=== PATIENT | female | born 1965 | race Caucasian/White ===

== ENCOUNTER 2017-09-04 21:15 | Emergency (ER) | payer MEDICAID ==
[2011-04-14 01:15] VITALS: BMI 25.9
[2017-09-04 22:03] LABS: APPEARANCE CLEAR (CLEAR); BILIRUBIN NEGATIVE (NEGATIVE); COLOR YELLOW (YELLOW); GLUCOSE NEGATIVE (NEGATIVE); KETONE NEGATIVE (NEGATIVE); NITRITE NEGATIVE (NEGATIVE); PROTEIN NEGATIVE (NEGATIVE); SPECIFIC GRAVITY 1.015 (1.005-1.020); UROBILINOGEN NORMAL (NORMAL)
== END 2017-09-04 22:49 | disposition home or self-care (01) ==
LOC: D.ER 21:15
PROVIDERS: Family Medicine
DX: R45.851 Suicidal ideations (principal); I10 Essential (primary) hypertension

== ENCOUNTER 2017-09-05 00:04 | Emergency (ER) | payer MEDICAID ==
[2011-04-14 01:15] VITALS: BMI 25.9
[2017-09-05 01:06] LABS: UDS - AMPHET NEGATIVE QUAL (NEGATIVE); UDS - BARB NEGATIVE QUAL (NEGATIVE); UDS - BENZO POSITIVE QUAL (NEGATIVE); UDS - COCAINE NEGATIVE QUAL (NEGATIVE); UDS - OPIATE POSITIVE QUAL (NEGATIVE); UDS - PCP NEGATIVE QUAL (NEGATIVE); UDS - THC NEGATIVE QUAL (NEGATIVE)
[2017-09-05 01:47] LABS: ALKALINE PHOSPHATASE 155 U/L (46-116); ALT (SGPT) 108 U/L (10-68); CALC OSMOLALITY 277 mosm/kg (275-300); CALCIUM 8.6 mg/dL (8.5-10.1); CARBON DIOXIDE 29.7 mmol/L (21.0-32.0); CHLORIDE - SERUM 102 mmol/L (98-107); CREATININE - SERUM 0.5 mg/dL (0.6-1.3); GLUCOSE 105 mg/dL (74-106); POTASSIUM - SERUM 3.8 mmol/L (3.5-5.1); PROTEIN - SERUM 6.5 g/dL (6.4-8.2); SODIUM 139 mmol/L (136-145); UREA NITROGEN 13 mg/dL (7-18); eGFR NON AFRICAN AMERICAN > 90 mL/min (90-120)
[2017-09-05 01:54] LABS: BASOPHILS 0.5 % (0-2); EOSINOPHILS 3.4 % (0-7); HEMATOCRIT 35.8 % (36.0-48.0); HEMOGLOBIN 11.6 g/dL (12-16); LYMPHOCYTES 23.1 % (15-50); MCH 30.6 pg (26.0-34.0); MCHC 32.4 g/dL (31.0-37.0); MCV 94.5 fL (80.0-100.0); MEAN PLATELET VOLUME 11.3 fL (7.4-10.4); MONOCYTES 8.5 % (2-11); NEUTROPHILS 64.5 % (40-80); PLATELET COUNT 195 10x3/uL (130-400); RBC 3.79 10x6/uL (4.00-5.40); RDW 13.8 % (11.5-14.5); WBC 4.1 10x3/uL (4.8-10.8)
== END 2017-09-05 00:25 | disposition home or self-care (01) ==
LOC: D.ER 00:04
PROVIDERS: Physician Assistant Medical
DX: M54.5 Low back pain (principal)

== ENCOUNTER 2018-02-19 11:22 | Emergency (ER) | payer MEDICAID ==
[2018-02-19 11:55] VITALS: Ht 172.7 cm
[2018-02-19 12:06] LABS: APPEARANCE CLEAR (CLEAR); BILIRUBIN NEGATIVE (NEGATIVE); COLOR STRAW (YELLOW); GLUCOSE NEGATIVE (NEGATIVE); KETONE NEGATIVE (NEGATIVE); NITRITE NEGATIVE (NEGATIVE); PROTEIN NEGATIVE (NEGATIVE); SPECIFIC GRAVITY 1.005 (1.005-1.020); UROBILINOGEN NORMAL (NORMAL)
[2018-02-19 12:12] LABS: UDS - AMPHET NEGATIVE QUAL (NEGATIVE); UDS - BARB NEGATIVE QUAL (NEGATIVE); UDS - BENZO POSITIVE QUAL (NEGATIVE); UDS - COCAINE NEGATIVE QUAL (NEGATIVE); UDS - OPIATE POSITIVE QUAL (NEGATIVE); UDS - PCP NEGATIVE QUAL (NEGATIVE); UDS - THC NEGATIVE QUAL (NEGATIVE)
[2018-02-19 12:24] LABS: BASOPHILS 0.5 % (0-2); EOSINOPHILS 8.5 % (0-7); HEMATOCRIT 35.4 % (36.0-48.0); HEMOGLOBIN 11.3 g/dL (12-16); LYMPHOCYTES 36.1 % (15-50); MCH 29.7 pg (26.0-34.0); MCHC 31.9 g/dL (31.0-37.0); MCV 92.9 fL (80.0-100.0); MEAN PLATELET VOLUME 11.2 fL (7.4-10.4); MONOCYTES 9.7 % (2-11); NEUTROPHILS 45.2 % (40-80); PLATELET COUNT 177 10x3/uL (130-400); RBC 3.81 10x6/uL (4.00-5.40); RDW 14.7 % (11.5-14.5); WBC 6.2 10x3/uL (4.8-10.8)
[2018-02-19 12:41] LABS: ALBUMIN 3.5 g/dL (3.4-5.0); ALKALINE PHOSPHATASE 62 U/L (46-116); ALT (SGPT) 19 U/L (10-68); CALC OSMOLALITY 280 mosm/kg (275-300); CALCIUM 8.7 mg/dL (8.5-10.1); CARBON DIOXIDE 29.9 mmol/L (21.0-32.0); CHLORIDE - SERUM 105 mmol/L (98-107); CREATININE - SERUM 0.6 mg/dL (0.6-1.3); GLUCOSE 97 mg/dL (74-106); POTASSIUM - SERUM 4.6 mmol/L (3.5-5.1); SODIUM 140 mmol/L (136-145); UREA NITROGEN 17 mg/dL (7-18); eGFR NON AFRICAN AMERICAN > 90 mL/min (90-120)
[2018-02-19 17:18] VITALS: BP 106/084
== END 2018-02-19 17:21 ==
LOC: D.ER 11:22
PROVIDERS: Family Medicine
DX: R45.851 Suicidal ideations (principal); F32.9 Major depressive disorder, single episode, unspecified; Z86.73 Personal history of transient ischemic attack (TIA), and cerebral infarction without residual deficits; I10 Essential (primary) hypertension

== ENCOUNTER → 2018-08-21 09:55 | Outpatient (CLI) | payer MEDICAID ==
[2018-02-19 11:55] VITALS: BMI 25.9
== END | disposition home or self-care (01) ==
LOC: D.NM 09:30
DX: M89.9 Disorder of bone, unspecified (principal)

== ENCOUNTER 2018-10-07 01:13 | Emergency (ER) | payer MEDICAID ==
[~2018-10-07] VITALS: Ht 172.7 cm; Wt 63.6 kg
[2018-10-07 01:18] VITALS: Ht 172.7 cm; Wt 63.6 kg
[2018-10-07 01:51] LABS: BASOPHILS 0.4 % (0-2); EOSINOPHILS 6.7 % (0-7); HEMATOCRIT 37.9 % (36.0-48.0); HEMOGLOBIN 12.3 g/dL (12-16); IMMATURE GRANULOCYTES 0.2 % (0-5); MCH 29.6 pg (26.0-34.0); MCHC 32.5 g/dL (31.0-37.0); MCV 91.1 fL (80.0-100.0); MEAN PLATELET VOLUME 10.6 fL (7.4-10.4); MONOCYTES 7.7 % (2-11); PLATELET COUNT 197 10x3/uL (130-400); RBC 4.16 10x6/uL (4.00-5.40); RDW 14.4 % (11.5-14.5)
[2018-10-07 02:00] LABS: APPEARANCE CLEAR (CLEAR); BILIRUBIN NEGATIVE (NEGATIVE); COLOR YELLOW (YELLOW); GLUCOSE NEGATIVE (NEGATIVE); KETONE NEGATIVE (NEGATIVE); NITRITE NEGATIVE (NEGATIVE); PROTEIN NEGATIVE (NEGATIVE); SPECIFIC GRAVITY 1.015 (1.005-1.020); UROBILINOGEN NORMAL (NORMAL)
[2018-10-07] MEDS ORDERED: TRAMADOL HCL E100 M1 PO (02:07)
[2018-10-07] MEDS ORDERED: VICODIN (02:07)
[2018-10-07] MEDS ORDERED: PAXIL (02:07)
[2018-10-07] MEDS ORDERED: SYNTHROID (02:08)
[2018-10-07] MEDS ORDERED: METOPROLOL (02:08)
[2018-10-07 02:09] LABS: UDS - AMPHET NEGATIVE QUAL (NEGATIVE); UDS - BARB NEGATIVE QUAL (NEGATIVE); UDS - BENZO POSITIVE QUAL (NEGATIVE); UDS - COCAINE NEGATIVE QUAL (NEGATIVE); UDS - OPIATE NEGATIVE QUAL (NEGATIVE); UDS - PCP NEGATIVE QUAL (NEGATIVE); UDS - THC NEGATIVE QUAL (NEGATIVE)
[2018-10-07 02:14] LABS: ALBUMIN 3.4 g/dL (3.4-5.0); ALKALINE PHOSPHATASE 55 U/L (46-116); ALT (SGPT) 19 U/L (10-68); BILIRUBIN - TOTAL 0.15 mg/dL (0.2-1.3); CALC OSMOLALITY 276 mosm/kg (275-300); CALCIUM 8.4 mg/dL (8.5-10.1); CARBON DIOXIDE 28.3 mmol/L (21.0-32.0); CHLORIDE - SERUM 103 mmol/L (98-107); CREATININE - SERUM 0.6 mg/dL (0.6-1.3); GLUCOSE 82 mg/dL (74-106); POTASSIUM - SERUM 4.8 mmol/L (3.5-5.1); PROTEIN - SERUM 6.9 g/dL (6.4-8.2); SODIUM 139 mmol/L (136-145); UREA NITROGEN 13 mg/dL (7-18); eGFR NON AFRICAN AMERICAN > 90 mL/min (90-120)
[2018-10-07 12:00] VITALS: BP 114/62
== END 2018-10-07 15:30 ==
LOC: D.ER 01:13
PROVIDERS: Family Medicine
DX: G89.29 Other chronic pain (principal); R45.851 Suicidal ideations; Z86.73 Personal history of transient ischemic attack (TIA), and cerebral infarction without residual deficits; I10 Essential (primary) hypertension; M32.9 Systemic lupus erythematosus, unspecified

== ENCOUNTER → 2018-10-24 17:20 | Outpatient (CLI) | payer MEDICAID ==
[2018-10-07 01:18] VITALS: BMI 21.3
[~2018-10-24 17:20] MED LIST: METOPROLOL; PAXIL; SYNTHROID; TRAMADOL HCL E100 M1 PO; VICODIN
== END | disposition home or self-care (01) ==
LOC: D.MAMMO 10-16 16:15
DX: Z12.31 Encounter for screening mammogram for malignant neoplasm of breast (principal)

== ENCOUNTER 2019-04-05 10:21 | Emergency (ER) | payer MEDICAID ==
[~2019-04-05] VITALS: Ht 172.7 cm; Wt 68.2 kg
[2019-04-05 10:22] VITALS: Ht 172.7 cm; Wt 68.2 kg
[2019-04-05 11:03] LABS: BASOPHILS 0.5 % (0-2); EOSINOPHILS 10.1 % (0-7); HEMATOCRIT 32.5 % (36.0-48.0); HEMOGLOBIN 10.5 g/dL (12-16); IMMATURE GRANULOCYTES 0.3 % (0-5); LYMPHOCYTES 31.6 % (15-50); MCH 29.3 pg (26.0-34.0); MCHC 32.3 g/dL (31.0-37.0); MCV 90.8 fL (80.0-100.0); MEAN PLATELET VOLUME 10.6 fL (7.4-10.4); NEUTROPHILS 48.5 % (40-80); PLATELET COUNT 204 10x3/uL (130-400); RBC 3.58 10x6/uL (4.00-5.40); RDW 15.7 % (11.5-14.5); WBC 3.7 10x3/uL (4.8-10.8)
--- NOTE | 2019-04-05 11:39 | NUR ---
DR SCHMITZ NOTIFIED AND SITTER ORDERED, SITTER AT BEDSIDE. NOTIFIED CHARGE NURSE AND ATTENDING IN REGARDS TO ASSESSMENT FINDINGS. RESOURCES GIVEN TO PT AND SAFETY PLAN INITIATED.
[2019-04-05 11:42] LABS: INR 0.9 (0.85-1.17); PROTIME 11.7 SECONDS (11.6-15.0)
[2019-04-05 11:43] LABS: D-DIMER-QUANTITATIVE 0.76 ug/mLFEU (0.20-0.54)
[2019-04-05 11:44] LABS: ALBUMIN 3.3 g/dL (3.4-5.0); ALKALINE PHOSPHATASE 78 U/L (46-116); ALT (SGPT) 35 U/L (10-68); BILIRUBIN - TOTAL 0.64 mg/dL (0.2-1.3); CALC OSMOLALITY 277 mosm/kg (275-300); CALCIUM 8.3 mg/dL (8.5-10.1); CARBON DIOXIDE 27.2 mmol/L (21.0-32.0); CHLORIDE - SERUM 104 mmol/L (98-107); CREATININE - SERUM 0.7 mg/dL (0.6-1.3); GLUCOSE 110 mg/dL (74-106); POTASSIUM - SERUM 3.8 mmol/L (3.5-5.1); PROTEIN - SERUM 7.1 g/dL (6.4-8.2); SODIUM 140 mmol/L (136-145); UREA NITROGEN 7 mg/dL (7-18); eGFR NON AFRICAN AMERICAN > 90 mL/min (90-120)
[2019-04-05 11:49] LABS: CKMB 2.8 U/L (0.0-3.6); CREATINE KINASE 158 UL (21-215); PRO BNP 831 pg/mL (0-125); TROPONIN-I 0.021 ng/mL (0.000-0.060)
[2019-04-05 14:23] LABS: ACETAMINOPHEN 3.1 ug/mL (10.0-30.0)
[2019-04-05 16:09] LABS: UDS - AMPHET NEGATIVE QUAL (NEGATIVE); UDS - BARB NEGATIVE QUAL (NEGATIVE); UDS - BENZO NEGATIVE QUAL (NEGATIVE); UDS - COCAINE NEGATIVE QUAL (NEGATIVE); UDS - OPIATE NEGATIVE QUAL (NEGATIVE); UDS - PCP NEGATIVE QUAL (NEGATIVE); UDS - THC POSITIVE QUAL (NEGATIVE)
[2019-04-06 00:45] VITALS: BP 122/78
== END 2019-04-06 00:45 | disposition home or self-care (01) ==
LOC: D.ER 10:21
PROVIDERS: Family Medicine
DX: R07.89 Other chest pain (principal); F32.9 Major depressive disorder, single episode, unspecified; F19.11 Other psychoactive substance abuse, in remission; R07.81 Pleurodynia

== ENCOUNTER 2019-07-07 19:13 | Observation (INO) | payer MEDICAID ==
[~2019-07-07] VITALS: Ht 172.7 cm; Wt 70.3 kg
--- NOTE | ~2019-07-07 | HEMODYNAMI ---
PATIENT:ELIZABETH HUBER MEDICAL RECORD: [id number] : 63 [id number] ADMISSION DATE: 07/07/19 Generatedon:07/08/201910:50 Patient name: ELIZABETH HUBER Patient #: [id number] SSN: [id number] : 1965 Date of study: 07/08/2019 Page: Of Hemodynamic Procedure Report Patient Data Patient Demographics Procedure consent was obtained First Name: ELIZABETH Gender: Female Last Name: CECILE : 1965 Middle Initial: CHRISTINE Age: 53 year(s) Patient #: [id number] Race: Unknown SSN: [id number] Additional ID: [id number] Contact details [address]: [address] [place] [address] State: [place] City: [place] Zip code: [address] Past Medical History Allergies Allergen Reaction Date Comments Reported Other allergy 07/08/2019 Morphine, Erythrocin,Sulfa, codeine, doxycycline, Toradol Admission Admission Data Admission Date: 07/07/2019 Admission Time: 22:46 Arrival Date: 07/08/2019 Arrival Time: 0:00 Admit Source: Other Insurance Payor: Medicaid Room #: D.2110 [facility] #: [id number] Height (in.): 67.72 BSA: 1.83 (m2) Height (cm.): 172 BMI: 23.66 (kg/m2) Weight (lbs.): 154.32 Weight (kg.): 70 Lab Results Lab Result Date: 07/08/2019 Lab Result Time: 0:00 Biochemistry Name Units Result Min Max BUN mg/dl 10 --(-*--)-- 7 18 CK-MB ng/ml 1.2 --(-*--)-- 0 3.6 Creatinine mg/dl 0.5 -*(----)-- 0.6 1.3 CBC Name Units Result Min Max Hemoglobin g/dl 12.5 *-(----)-- 13.5 17.5 Procedure Procedure Types Cath Procedure Diagnostic Procedure [facility] w/Coronaries Procedure Description Procedure Date Procedure Date: 07/08/2019 Procedure Start Time: 10:36 Procedure End Time: 10:48 Procedure Staff Name Function Dex Lion MD Performing Physician Bridgett Grover RT Monitor Mellisa Fenton RN Nurse Ellen Vega RT Scrub Procedure Data Cath Procedure Fluoroscopy Diagnostic fluoroscopy Total fluoroscopy Time: 1.6 time: 1.6 min min Diagnostic fluoroscopy Total fluoroscopy dose: 358 dose: 358 mGy mGy Contrast Material Contrast Material Type Amount (ml) Isovue 300 66 Entry Location Entry Primary Successful Side Size Upsize Upsize Entry Closure Succes sful Closure Location (Fr) 1 (Fr) 2 (Fr) Remarks Device Remarks Femoral Right 5 Fr Exoseal artery Estimated blood loss: 5 ml Diagnostic catheters Device Type Used For End Catheter Placement MULTIPACK JL 4.0 5Fr Procedure catheter MULTIPACK 3DRC 5Fr Procedure catheter MULTIPACK Pigtail 5 Fr Ventriculography catheter Procedure Complications No complications Procedure Medications Medication Administration Route Dosage Oxygen etCO2 Nasal cannula 2 l/min Lidocaine 2% added to field 20 Heparin Flush Bag added to field 2 bags (1000units/500ml NS) 0.9% NaCl I.V. 100 ml/hr Versed I.V. 2 mg Fentanyl I.V. 50 mcg Versed I.V. 1 mg Fentanyl I.V. 50 mcg Hemodynamics Rest BSA: 1.83 (m2) HGB: 12.5 (g/dl) O2 Consumption: Estimated: 180.51 (ml/min) O2 Co nsumption indexed: Estimated:98.64 (ml/min/m) Heart Rate: 75 (bpm) Pressure Samples Time Site Value (mmHg) Purpose Heart Use Rate(bpm) 10:37 AO 142/85(109) Snapshot 74 10:41 LV 133/5,10 Snapshot 80 10:42 AO 123/76(94) Pullback 78 10:42 LV 118/6,3 Pullback 78 Gradients Valve Time Site 1 Site 2 Mean SEP/DFP Peak To Heart Use (mmHg) (sec/min) Peak Rate (mmHg) (bpm) Aortic 10:42 LV AO 0 10 0 78 118/6,3 123/76(94) Calculations Valve P-P Mean Valve Index Valve Source Name Gradient Area Flow (cm2) Aortic 0 0 0 0 Snapshots Pre Cath Intra NCS Post Cath Vital Signs Time Heart Resp SPO2 etCO2 NIBP (mmHg) Rhythm Pain Sedation Rate (ipm) (%) (mmHg) Status Level (bpm) 10:22:26 72 25 99 48.1 146/99(124) NSR 0 (11) 10(A) , No pain 10:26:36 75 15 98 42.9 134/92(123) NSR 0 (11) 10(A) , No pain 10:30:41 76 16 97 43.6 137/96(111) NSR 0 (11) 10(A) , No pain 10:34:49 73 17 98 40.6 145/88(116) NSR 0 (11) 10(A) , No pain 10:39:01 80 35 96 49.6 133/89(115) NSR 0 (11) 9(A) , No pain 10:43:07 79 30 95 49.7 129/94(106) NSR 0 (11) 9(A) , No pain 10:47:17 76 16 96 50.4 129/77(98) NSR 0 (11) 10(A) , No pain Medications Time Medication Route Dose Verified Delivered Reason Notes Eff ectiveness by by 10:21:47 Oxygen etCO2 2 Dex Buffie used for Nasal l/min [facility] Chris Fenton RN procedure cannula 10:21:54 Lidocaine 2% added 20ml Dex Dex for local to vial [facility] anesthetic field MD HORAN 10:22:02 Heparin Flush added 2 Dex Buffie used for Bag to bags [facility] Chris Fenton RN procedure (1000units/500ml field HORAN NS) 10:27:02 0.9% NaCl I.V. 100 Dex Buffie Per ml/hr St Chris Fenton RN physician 10:37:06 Versed I.V. 2 mg Dex Dmitryie for [facility] Chris Fenton RN sedation 10:37:12 Fentanyl I.V. 50 Dex [address] for mcg [facility] Chris Fenton RN sedation 10:40:09 Versed I.V. 1 mg Dex Buffie for [facility] Chris Fenton RN sedation 10:40:16 Fentanyl I.V. 50 Dex Dmitryie for mcg [facility] Chris Fenton RN sedation Procedure Log Time Note 10:01:27 Patient allergic to Other allergyMorphine, Erythrocin,Sulfa, codeine, doxycycline, Toradol 10:01:37 Patient Height : 67.72 inches 10:01:41 Patient Weight : 154.32 lbs 10:01:48 Insurance Payor : Medicaid 10:01:49 Admit Source: Other 10:01:56 Arrival Date: 07/08/2019 12:00:00 AM 10:03:19 Lab Result : CK-MB 1.2 ng/ml 10:03:19 Lab Result : Hemoglobin 12.5 g/dl 10:03:19 Lab Result : BUN 10 mg/dl 10::19 Lab Result : Creatinine 0.5 mg/dl 10:03:27 Diagnostic Cath Status : Urgent 10:03:59 Procedure Status Urgent Heart Cath (IP). 10:04:01 Mellisa Fenton RN sent for patient. Start room use. 10:04:03 Time tracking: Regular hours (M-F 7:00 - 5:00) 10:04:08 Plan of Care:Hemodynamics will remain stable., Cardiac rhythm will remain stable., Comfort level will be maintained., Respiratory function will remain adequate., Patient/ family verbilizes understanding of procedure., Procedure tolerated without complication., Recovers from procedure without complications.. 10:04:15 Patient received from Med II to CCL 2 Alert and oriented. Tansferred to table in Supine position. 10:04:18 Signed procedure consent form obtained from patient. 10:04:19 Warm blankets applied, and birgit hugger turned on for patient comfort. 10:04:21 Correct patient and procedure confirmed by team. 10:04:22 ECG and BP/O2 sat monitors applied to patient. 10:04:32 H&P Date Dictated: 07/07/2019 Within 30 days and on chart., H&P Addendum completed by physician on day of procedure. (MUST COMPLETE FOR ALL OUTPATIENTS). 10:04:34 Pre-procedure instructions explained to patient. 10:04:36 Family in patients room. 10:04:39 Patient NPO since Midnight. 10:06:08 Maximum allowable contrast dose (3.7 X eGFR X 0.75)249 ml. 10:06:14 1) 90+ Normal kidney functon but urine findings or structural abnormalities or genetic trait point to kidney disease. 10:16:11 Is the patient allergic to Iodine/contrast media? No. 10:16:13 Was the patient premedicated? Yes 10:19:27 Is patient on blood thinner?Unknown 10:19:37 Bleeding risk 1.1%. 10:19:40 Patient diabetic? No. 10:19:48 Snore? Unknown 10:19:49 Sleep apnea? No 10:19:55 Dentures? No ? 10:20:02 Pre procedure: right dorsailis pedis pulse 1+ Palpable, but thready & weak; easily obliterated 10:20:08 Patient pain scale 0/10 ?. 10:20:26 IV patent on arrival in right hand with 0.9% NaCl at [facility]. 10:20:32 Lab results completed and on chart. 10:20:36 Risk of Mortality: .2 10:20:39 Risk of blood transfusion: 1.1 10:20:43 Risk of JIAN: .9 10:20:47 Right groin area was prepped with chlora-prep and draped in sterile fashion 10:20:54 Alarms reviewed by R. N. 10:20:56 Sharps counted by scrub and verified by R.N. 10:21:17 Vital chart was started 10:21:47 Oxygen 2 l/min etCO2 Nasal cannula was administered by Mellisa Fenton RN; used for procedure; Verbal order read back and verified. 10:21:54 Lidocaine 2% 20ml vial added to field was administered by Dex Lion MD; for local anesthetic; Verbal order read back and verified. 10:22:02 Heparin Flush Bag (1000units/500ml NS) 2 bags added to field was administered by Mellisa Fenton RN; used for procedure; Verbal order read back and verified. 10:25:50 Physician paged 10:26:04 Zero performed for pressure channel P1 10:27:02 0.9% NaCl 100 ml/hr I.V. was administered by Mellisa Fenton RN; Per physician; Verbal order read back and verified. 10:29:05 Use device set Femoral Dx 10:29:06 ACIST Syringe (32380) opened to sterile field. 10:29:07 Bag Decanter () opened to sterile field. 10:29:08 Medline Cath Pack ([id number]) opened to sterile field. 10:29:09 ACIST Hand Control (48491) opened to sterile field. 10:29:09 ACIST Manifold (90738) opened to sterile field. 10:29:10 DIAGNOSTIC Multipack 5Fr catheter set ([id number]) opened to sterile field. 10:29:18 SHEATH 5FR [place] (RPI073) opened to sterile field. 10:29:19 EMERALD Guide Wire (793-624) opened to sterile field. 10:29:20 Tegaderm 4 x 4 (1626W) opened to sterile field. 10:32:31 Baseline sample Acquired. 10:32:36 Rhythm: sinus rhythm 10:32:38 Full Disclosure recording started 10:32:47 Patient not . Patient has had hysterectomy. 10:33:05 Physician arrived 10:33:06 --------ALL STOP TIME OUT------ 10:33:07 Final Timeout: patient, procedure, and site verified with staff and physician. All members of the team are in agreement. 10:33:09 Right groin site verified by team. 10:33:13 Fire Safety Assessment: A--An alcohol-based skin anteseptic being used preoperatively., C--Open oxygen or nitrous oxide is being used., D--An ESU, laser, or fiber-optic light is being used. 10:33:17 Physical assessment completed. ASA score P 2 - A patient with mild systemic disease as per Dex Lion MD. 10:33:21 Sedation plan: IV Moderate Sedation Medication:Versed, Fentanyl 10:35:52 Procedure started. 10:36:13 Local anesthetic to right femoral artery with Lidocaine 2% by Dex Lion MD.INITIAL ACCESS ONLY 10:36:23 A 5 Fr sheath was inserted into the Right Femoral artery 10:36:57 J wire advanced. 10:37:06 Versed 2 mg I.V. was administered by Mellisa Fenton RN; for sedation; Verbal order read back and verified. 10:37:08 A MULTIPACK JL 4.0 5Fr catheter was advanced over the wire and used for Procedure. 10:37:12 Fentanyl 50 mcg I.V. was administered by Mellisa Fenton RN; for sedation; Verbal order read back and verified. 10:37:12 LCA angiography performed. 10:39:02 Catheter removed. 10:39:10 A MULTIPACK 3DRC 5Fr catheter was advanced over the wire and used for Procedure. 10:39:15 RCA angiography performed. 10:40:00 Catheter removed. 10:40:08 A MULTIPACK Pigtail 5 Fr catheter was advanced over the wire and used for Ventriculography. 10:40:09 Versed 1 mg I.V. was administered by Mellisa Fenton RN; for sedation; Verbal order read back and verified. 10:40:16 Fentanyl 50 mcg I.V. was administered by Mellisa Fenton RN; for sedation; Verbal order read back and verified. 10:40:27 LV angiography performed. 10:40:41 ACCDominant side:Co-Dominant 10:40:45 LV gram done using WRIGHT 10:42:00 EF : 55 % 10:42:02 Catheter removed. 10:42:06 EXOSEAL 5Fr (EX500) opened to sterile field. 10:42:30 Sheath removed intact; hemostasis achieved with Exoseal to the Right Femoral artery. 10:42:33 Procedure ended.(Physican Out) 10:42:46 Fluoroscopy time 01.60 minutes. 10:42:52 Fluoroscopy dose: 358 mGy 10:42:52 Flurop Dose total: 358 10:43:01 Dose Area Product 39578 mGy/cm. 10:43:06 Contrast amount:Isovue 300 66ml. 10:43:09 Maximum allowable dose exceeded? No. 10:43:46 Sharps counted by scrub and verified by R.N. 10:43:50 Insertion/operative site no bleeding no hematoma. 10:43:53 Post-op/insertion site Right Femoral artery dressed using a 4 x 4 and Tegaderm. 10:43:59 Post right femoral artery:stable 10:44:06 Post Procedure Pulses reassessed and unchanged 10:44:10 Post-procedure physical assessment completed. ASA score P 2 - A patient with mild systemic disease as per Dex Lion MD. 10:44:15 Post procedure rhythm: sinus rhythm 10:44:21 Estimated blood loss: 5 ml 10:44:24 Post procedure instruction explained to patient.Patient verbalizes understanding. 10:44:59 Procedure and supply charges have been captured, reviewed, submitted and are correct. 10:45:18 Procedure Complication : No complications 10:48:03 Vital chart was stopped 10:48:06 [facility] Findings: mild to moderate CAD (<70%) 10:48:09 Operative report dictated upon procedure completion. 10:48:11 See physician's report for complete and final results. 10:48:14 Report given to Med II. 10:48:17 Procedure ended. 10:48:17 Full Disclosure recording stopped 10:48:24 End room use (Document Last) 10:48:58 End room use (Document Last) 10:49:32 End room use (Document Last) Device Usage Item Name Manufacture Quantity Catalog Hospital Part Current Minimal L ot# / Number Charge Number Stock Stock Serial# Code ACIST Acist 1 24216 030832 472261 482122 20 Syringe Medical (12385) Systems Inc Bag Microtek 1 2001S 739011 91887 745918 5 Decanter Medical Inc. () Medline Medline 1 [id number] 720783 22020 409131 5 Cath Pack ([id number]) ACIST Hand Acist 1 34663 956836 942087 244378 5 Control Medical (98799) Systems Inc ACIST Acist 1 03984 433711 710745 632673 5 Manifold Medical (29107) Systems Inc DIAGNOSTIC Cardinal 1 AW6142 650822 98286 760378 30 Multipack Health 5Fr catheter set (AJ6278) SHEATH 5FR Terumo 1 VPA822 535365 325202 344510 5 [place] (JTQ747) EMERALD Cardinal 1 502-455 076373 721483 822654 5 Guide Wire [facility] (502-455) Tegaderm 4 3M 1 1626W 915880 712800 887178 5 x 4 (1626W) MULTIPACK Cardinal 1 612138 5 JL 4.0 5Fr Health catheter MULTIPACK Cardinal 1 619964 5 3DRC 5Fr Health catheter MULTIPACK Cardinal 1 281589 5 Pigtail 5 Health Fr catheter EXOSEAL 5Fr Cardinal 1 EX500 033358 537293 521419 10 (EX500) Health Signature Audit [place] Stage Time Signature Unsigned Intra-Procedure 07/08/2019 Bridgett Grover 10:48:58 AM RT(R) Intra-Procedure 07/08/2019 Mellisa Fenton RN 10:49:32 AM Intra-Procedure 07/08/2019 Dex Red 10:50:18 AM Chris HORAN Signatures Performing Physician : Signature : Dex Lion MD Date : Time : Monitor : Bridgett Reilly Signature : RT Date : Time : Nurse : Buffie Fenton RN Signature : Date : Time : [address] [place] [address]
--- NOTE | 2019-07-07 20:05 | NUR ---
MENTAL HEALTH RN AT PT BEDSIDE PERFORMIN ASSESSMENT.
[2019-07-07 20:07] LABS: BASOPHILS 0.2 % (0-2); EOSINOPHILS 2.5 % (0-7); HEMATOCRIT 38.7 % (36.0-48.0); HEMOGLOBIN 12.5 g/dL (12-16); IMMATURE GRANULOCYTES 0.2 % (0-5); LYMPHOCYTES 28.1 % (15-50); MCH 29.8 pg (26.0-34.0); MCHC 32.3 g/dL (31.0-37.0); MCV 92.1 fL (80.0-100.0); MONOCYTES 6.1 % (2-11); NEUTROPHILS 62.9 % (40-80); PLATELET COUNT 193 10x3/uL (130-400); RDW 14.2 % (11.5-14.5); WBC 6.4 10x3/uL (4.8-10.8)
--- NOTE | 2019-07-07 20:15 | NUR ---
DR SCHMITZ NOTIFIED AND REVIEWED PT BEHAVIORS AND ASSESSMENT RESULT. PT IS A LOW RISK PER DR SCHMITZ. DR SCHMITZ STATED TO GIVE RESOURCES TO PT AT TIME OF DISCHARGE. NO FURTHER ORDERS AT THIS TIME. RESOURCES REVEIEW WITH PT AND SHE VERBALIZED UNDERSTANDING.
[2019-07-07 20:16] LABS: APTT 27.3 SECONDS (22.8-39.4); INR 0.99 (0.85-1.17); PROTIME 12.6 SECONDS (11.6-15.0)
--- NOTE | 2019-07-07 20:23 | NUR ---
PT LEFT ED VIA WC FOR CT.
[2019-07-07 20:26] LABS: CALC OSMOLALITY 280 mosm/kg (275-300); CALCIUM 9.5 mg/dL (8.5-10.1); CARBON DIOXIDE 28.5 mmol/L (21.0-32.0); CHLORIDE - SERUM 102 mmol/L (98-107); CREATININE - SERUM 0.5 mg/dL (0.6-1.3); GLUCOSE 89 mg/dL (74-106); POTASSIUM - SERUM 3.4 mmol/L (3.5-5.1); SODIUM 142 mmol/L (136-145); UREA NITROGEN 10 mg/dL (7-18); eGFR NON AFRICAN AMERICAN > 90 mL/min (90-120)
[2019-07-07 20:39] LABS: ALBUMIN 4.2 g/dL (3.4-5.0); ALKALINE PHOSPHATASE 61 U/L (46-116); ALT (SGPT) 26 U/L (10-68); AMYLASE - SERUM 44 U/L (25-115); BILIRUBIN - TOTAL 0.34 mg/dL (0.2-1.3); CKMB 1.2 U/L (0.0-3.6); CREATINE KINASE 79 UL (21-215); LIPASE 130 U/L (73-393); MAGNESIUM - SERUM 1.9 mg/dL (1.8-2.4); PROTEIN - SERUM 7.7 g/dL (6.4-8.2); THYROID STIMULATING HORMONE 1.83 uIU/mL (0.36-3.74); TROPONIN-I 0.028 ng/mL (0.000-0.060)
--- NOTE | 2019-07-07 21:01 | NUR ---
PT C/O PAIN. EDP NOTIFIED. PLAN OF CARE DISCUSSED WITH PT.
[2019-07-07 21:16] VITALS: BP 127/79
--- NOTE | 2019-07-07 21:35 | NUR ---
PT DENIES RELIEF IN DISCOMFORT AFTER RECEIVING NTG SL. PT REMAINS AWAKE AND ALERT.
--- NOTE | 2019-07-07 22:13 | NUR ---
RN ASSISTED PT IN AMBULATING TO RESTROOM. URINE SPECIMEN SENT TO LAB.
[2019-07-07 22:19] LABS: APPEARANCE CLEAR (CLEAR); COLOR STRAW (YELLOW); GLUCOSE NEGATIVE (NEGATIVE); NITRITE NEGATIVE (NEGATIVE); PROTEIN NEGATIVE (NEGATIVE)
[2019-07-07 22:20] LABS: BILIRUBIN NEGATIVE (NEGATIVE); KETONE SMALL mg/dL (NEGATIVE); UROBILINOGEN NORMAL (NORMAL)
[2019-07-07 22:30] LABS: UDS - AMPHET NEGATIVE QUAL (NEGATIVE); UDS - BARB NEGATIVE QUAL (NEGATIVE); UDS - BENZO NEGATIVE QUAL (NEGATIVE); UDS - COCAINE NEGATIVE QUAL (NEGATIVE); UDS - OPIATE NEGATIVE QUAL (NEGATIVE); UDS - PCP NEGATIVE QUAL (NEGATIVE); UDS - THC NEGATIVE QUAL (NEGATIVE)
[2019-07-08] MEDS ORDERED: METOPROLOL TART50 MG PO (00:07)
[2019-07-08] MEDS ORDERED: LEVOTHYROXINE50 MCG PO (00:08)
[2019-07-08] MEDS ORDERED: ATARAX 25 MG TA25 MG PO (00:09)
[2019-07-08] MEDS ORDERED: ULTRAM50 MG PO (00:10)
[2019-07-08] MEDS ORDERED: PAXIL40 MG PO (00:11)
[2019-07-08] MEDS ORDERED: NEURONTIN 300300 MG (00:11)
[2019-07-08 01:00] LABS: CKMB 1.2 U/L (0.0-3.6); CREATINE KINASE 55 UL (21-215); TROPONIN-I 0.018 ng/mL (0.000-0.060)
[2019-07-08 04:38] VITALS: BP 131/97
[2019-07-08 04:53] LABS: CKMB 1.2 U/L (0.0-3.6); CREATINE KINASE 100 UL (21-215); TROPONIN-I 0.023 ng/mL (0.000-0.060)
[2019-07-08 09:25] VITALS: BP 126/82
[2019-07-08 09:49] LABS: BASOPHILS 0.4 % (0-2); EOSINOPHILS 5.2 % (0-7); HEMATOCRIT 35.7 % (36.0-48.0); HEMOGLOBIN 11.4 g/dL (12-16); IMMATURE GRANULOCYTES 0.2 % (0-5); MCH 29.5 pg (26.0-34.0); MCHC 31.9 g/dL (31.0-37.0); MCV 92.5 fL (80.0-100.0); MEAN PLATELET VOLUME 11.2 fL (7.4-10.4); MONOCYTES 8.7 % (2-11); NEUTROPHILS 40.5 % (40-80); PLATELET COUNT 170 10x3/uL (130-400); RBC 3.86 10x6/uL (4.00-5.40); RDW 14.3 % (11.5-14.5); WBC 5.2 10x3/uL (4.8-10.8)
[2019-07-08 09:50] LABS: ALT (SGPT) 22 U/L (10-68); CALC OSMOLALITY 280 mosm/kg (275-300); CALCIUM 8.4 mg/dL (8.5-10.1); CHLORIDE - SERUM 106 mmol/L (98-107); CHOL - HDL RATIO 3.6 ratio (2.3-4.1); CHOLESTEROL, TOTAL 206 mg/dL (0-200); CREATININE - SERUM 0.5 mg/dL (0.6-1.3); GLUCOSE 96 mg/dL (74-106); HDL CHOLESTEROL 57 mg/dL (32-96); LDL CHOLESTEROL 137 mg/dL (0-100); LDL-HDL RATIO 2.4 ratio (1.5-3.5); POTASSIUM - SERUM 3.6 mmol/L (3.5-5.1); SODIUM 141 mmol/L (136-145); TRIGLYCERIDE 61 mg/dL (30-200); UREA NITROGEN 12 mg/dL (7-18); eGFR NON AFRICAN AMERICAN > 90 mL/min (90-120)
--- NOTE | 2019-07-08 10:01 | NUR ---
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
--- NOTE | 2019-07-08 11:12 | CN ---
PATIENT NAME:ELIZABETH HUBER MEDICAL RECORD: [id number] : 63 LOCATION:D.M2 D.2110 ADMIT DATE: 07/07/19 ACCOUNT: [id number] CONSULTING PHYSICIAN: JEAN CARLOS CRANDALL MD REFERRING PHYSICIAN: PAULETTE HOLLOWAY DO DATE OF CONSULTATION: 07/08/2019 HISTORY OF PRESENT ILLNESS: A 53-year-old lady with a remote history of coronary artery disease, reportedly not bad enough for stents by her report. She began having chest pain approximately a week ago, had a CT to evaluate dyspnea, was found to have increased calcium score. Pain is described as pressure and tightness radiating to left jaw. Smokes about a pack a day, has a history of dyslipidemia untreated by her report as well as hypertension, strong family history of coronary artery disease. We are asked to see her concerning her cardiovascular status. PAST MEDICAL HISTORY: Includes: 1. History of hypertension. 2. Coronary artery disease. 3. Dyslipidemia. ALLERGIES: INCLUDE MORPHINE, ERYTHROMYCIN, SULFA, CODEINE, DOXYCYCLINE, ERYTHROMYCIN. MEDICATIONS: Include metoprolol 50 p.o. b.i.d., Neurontin 300 mg 1 p.o. b.i.d., Paxil 40 mg p.o. daily, Atarax 25 q.8 hours p.r.n., tramadol 50 q.6 p.r.n., Synthroid 50 mcg every day. SOCIAL HISTORY: Smokes a little bit less than a pack a day, nondrinker. Easily takes care of all her ADLs. No set exercise program. REVIEW OF SYSTEMS: The patient reports easy bruising but reports no swollen glands. The patient reports no fever, no night sweats, no significant weight gain, no significant weight loss. No significant exercise tolerance. The patient reports no dry eyes, no irritation, no vision change. Patient reports no difficulty hearing and no ear pain. Patient reports no frequent nose bleeds or nose and sinus problems. Patient reports on arm pain on exertion. No shortness of breath while lying down. No history of heart murmur. Patient reports no cough, no wheezing or coughing up blood. Patient reports no abdominal pain, no vomiting. Normal appetite. No diarrhea and not vomiting blood. No nausea and no constipation. Patient reports no incontinence. No difficulty urinating. No hematuria. No increased frequency. Patient reports no muscle aches. No weakness, no arthralgias, no back pain. No swelling of the extremities. Patient reports no abnormal mole, no jaundice, no rashes. Reports no loss of consciousness. No weakness and no numbness. No seizures, dizziness, or headaches. The patient reports no depression, no sleep disturbance, feeling safe in a relationship and no alcohol abuse. Patient reports on fatigue. Reports no runny nose or sinus pressure. No itching, no hives, and no frequent sneezing. PHYSICAL EXAMINATION: GENERAL: Pleasant female in no acute distress. VITAL SIGNS: Blood pressure 131/97, pulse 84 and regular. HEENT: Normocephalic, atraumatic. NECK: No JVD or bruit. CONSULT REPORT [id number] ELIZABETH HUBER HEART: Regular. LUNGS: Good air excursion. ABDOMEN: Soft, nontender. EXTREMITIES: Pulses 2+. There is no edema. DIAGNOSTIC DATA: ECG shows no acute change. IMPRESSION: Acute coronary syndrome, unstable angina. PLAN: Angiography intervention based on the above. TRANSINT:[id number] Voice Confirmation ID: [id number] DOCUMENT ID: [id number] JEAN CARLOS CRANDALL MD at 1112 CC: [id number] DICTATION DATE: 07/08/19822 MINT WAFER DEPOSITOR: 07/08/19 [address] [facility] IN [place] [address] [place] [id number]
--- NOTE | 2019-07-08 11:16 | NUR ---
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 SHE IS DROWSY BUT AROUSES EASILY AND ANSWERS QUESTIONS. ABLE TO MOVE ALL EXT. RIGHT GROIN DRESSING D/I, NO BLEEDING NO HEMATOMA OR SWELLING NOTED. SITE ABOVE AND DOWN THIGH IS SOFT. CL IN REACH. VSS. O2 98% ON 2 L/M O2. BBS ARE CLEAR RESP EVEN WITHOUT LABOR. IV OF NS AT 100CC/HR FOR TOTAL OF 400CC IN DUE TO 22 GUAGE CATH.
[2019-07-08 12:00] VITALS: BP 116/75; BP 141/92
[2019-07-08] MEDS ORDERED: ASPIRIN325 MG PO (12:36)
--- NOTE | 2019-07-08 13:58 | NUR ---
UPON ADMIT HAYDEN HAS NOT HAD A FLU SHOT. WHEN ASKED IF SHE WOULD LIKE ONE, SHE REFUSED.
[2019-07-08] MEDS ORDERED: HYDROCODON-ACE1 EAC7 PO (14:04)
[2019-07-08] MEDS ORDERED: VISTARIL25 MG PO (14:05)
--- NOTE | 2019-07-08 14:12 | NUR ---
WRITTEN SCRIPT FOR NORCO 5 MG # 15 WITH NO REFILLS AND VISTERIL 25 MG # 14 GIVEN TO PATIENT. NO REFILLS TO EITHER ONE.
[2019-07-08 14:25] VITALS: Ht 172.7 cm; Wt 70.3 kg
--- NOTE | 2019-07-08 14:50 | NUR ---
DISCHARGE PAPERS EXPLAINED IN DETAIL. SALINE LOCK D/C WITH CATH TIP INTACT. NO BLEEDING NOTED. RIGHT GROIN DRESSING REMAINS D/I WITH NO BLEEDING HEMATOMA OR SWELLING NOTED. TELEMETRY RETURNED TO HEALTH MANAGEMENT CONSULTANT. SHE OFFERS NO C/O AND IS IN STABLE CONDITON. SHE HAS HER SCRIPT WITH HER PAPERS
--- NOTE | 2019-07-09 09:53 | MORECARE ---
CASE MANAGEMENT DISCHARGE SUMMARY PATIENT: ELIZABETH HUBER UNIT: [id number] ADM DATE: 07/07/19 AGE: 53 : 63 SEX: F ROOM/BED: D.2110 AUTHOR: SHRUTHI HAYES PHYSICIAN: REFERRING PHYSICIAN: PAULETTE HOLLOWAY DO DATE OF SERVICE: 07/09/19 Discharge Plan Patient Name: ELIZABETH HUBER [facility] [facility] 1965 Planned Disposition: Home Anticipated Discharge Date: 07/08/19 Discharge Date: 07/08/2019 Expected LOS: 1 Initial Reviewer: [email or web address] Initial Review Date: 07/09/2019 Generated: 07/09/19 10:52 am Patient Name: ELIZABETH HUBER Page [id number] at 0953 All edits/amendments must be made on the electronic document DICTATION DATE: 07/09/19951 ROD STRAIGHTENER: PAULY 07/09/19951 RPT#: [id number] DC DATE:07/08/19 STATUS: DIS IN [facility] [address] [facility] [place] [address] END OF REPORT
--- NOTE | 2019-07-09 15:17 | OP ---
PATIENT NAME: ELIZABETH HUBER MEDICAL RECORD: [id number] :63 LOCATION:D.M2 D.2109 ADMISSION DATE:07/07/19 SURGEON: JEAN CARLOS CRANDALL MD DATE OF OPERATION: 07/08/2019 PROCEDURE: Left heart catheterization, selective coronary angiography, right femoral artery approach. CATHETERS: A 5-Afghan sheath, 5/4 left and right Judkin's, 5/4 pig. The procedure was well tolerated. The patient was returned to lane, sheath removed. ExoSeal device placed. FINDINGS: Left ventriculography in 30-degree WRIGHT view: Normal wall motion, normal systolic function. CORONARY ANATOMY: LEFT MAIN: Left main is free of disease. LAD: Free of disease in the diagonal system. CIRCUMFLEX: Free of disease in the marginal system. RIGHT CORONARY ARTERY: Has luminal irregularities, but no flow obstructive disease. IMPRESSION: Normal LV systolic function, essentially normal coronary anatomy, noncardiac chest pain. TRANSINT:[id number] Voice Confirmation ID: [id number] DOCUMENT ID: [id number] JEAN CARLOS CRANDALL MD at 1517 CC: [id number] DICTATION DATE: 07/08/19 1102 CHAIN CARRIER: 07/08/19 1159 DIS IN 07/08/19 [facility] [address] [place] [address]
== END 2019-07-08 14:50 | disposition home or self-care (01) ==
LOC: D.ER 19:13 → OBSVTIME 22:46 → D.M2 22:46
PROVIDERS: Emergency Medicine; Internal Medicine Interventional Cardiology; ADMIT Family Medicine; ATTEND Family Medicine
DX: I24.9 Acute ischemic heart disease, unspecified (principal); I25.10 Atherosclerotic heart disease of native coronary artery without angina pectoris; E78.5 Hyperlipidemia, unspecified; F17.200 Nicotine dependence, unspecified, uncomplicated

== ENCOUNTER 2019-08-20 14:52 | Emergency (ER) | payer MEDICAID ==
[~2019-08-20] VITALS: Ht 172.7 cm; Wt 71.4 kg
[~2019-08-20 14:52] MED LIST changes: +ASPIRIN325 MG PO; +ATARAX 25 MG TA25 MG PO; +HYDROCODON-ACE1 EAC7 PO; +LEVOTHYROXINE50 MCG PO; +METOPROLOL TART50 MG PO; +NEURONTIN 300300 MG; +PAXIL40 MG PO; +ULTRAM50 MG PO; +VISTARIL25 MG PO
[2019-08-20 14:59] VITALS: Ht 172.7 cm; Wt 71.4 kg
[2019-08-20 15:35] LABS: BASOPHILS 0.4 % (0-2); EOSINOPHILS 3.2 % (0-7); HEMATOCRIT 39.8 % (36.0-48.0); HEMOGLOBIN 12.9 g/dL (12-16); IMMATURE GRANULOCYTES 0.2 % (0-5); LYMPHOCYTES 35.3 % (15-50); MCH 29.8 pg (26.0-34.0); MCHC 32.4 g/dL (31.0-37.0); MCV 91.9 fL (80.0-100.0); MEAN PLATELET VOLUME 10.6 fL (7.4-10.4); MONOCYTES 11.2 % (2-11); NEUTROPHILS 49.7 % (40-80); RBC 4.33 10x6/uL (4.00-5.40); RDW 14.7 % (11.5-14.5)
[2019-08-20 15:38] LABS: PLATELET COUNT 259 10x3/uL (130-400)
[2019-08-20 15:43] LABS: APTT 25.9 SECONDS (22.8-39.4); INR 1.05 (0.85-1.17); PROTIME 13.2 SECONDS (11.6-15.0)
[2019-08-20 15:45] LABS: CALC OSMOLALITY 277 mosm/kg (275-300); CALCIUM 8.9 mg/dL (8.5-10.1); CARBON DIOXIDE 26.8 mmol/L (21.0-32.0); CHLORIDE - SERUM 106 mmol/L (98-107); CREATININE - SERUM 0.5 mg/dL (0.6-1.3); GLUCOSE 92 mg/dL (74-106); POTASSIUM - SERUM 4.3 mmol/L (3.5-5.1); SODIUM 139 mmol/L (136-145); UREA NITROGEN 12 mg/dL (7-18); eGFR NON AFRICAN AMERICAN > 90 mL/min (90-120)
[2019-08-20 16:00] LABS: ALBUMIN 3.3 g/dL (3.4-5.0); ALKALINE PHOSPHATASE 65 U/L (46-116); ALT (SGPT) 30 U/L (10-68); BILIRUBIN - TOTAL 0.17 mg/dL (0.2-1.3); CKMB 1.9 U/L (0.0-3.6); CREATINE KINASE 71 UL (21-215); LIPASE 148 U/L (73-393); MAGNESIUM - SERUM 1.8 mg/dL (1.8-2.4); PROTEIN - SERUM 6.8 g/dL (6.4-8.2); TROPONIN-I < 0.017 ng/mL (0.000-0.060)
[2019-08-20 18:21] LABS: APPEARANCE CLEAR (CLEAR); BILIRUBIN NEGATIVE (NEGATIVE); COLOR YELLOW (YELLOW); GLUCOSE NEGATIVE (NEGATIVE); KETONE NEGATIVE (NEGATIVE); NITRITE NEGATIVE (NEGATIVE); PROTEIN NEGATIVE (NEGATIVE); UROBILINOGEN NORMAL (NORMAL)
[2019-08-20] MEDS ORDERED: ULTRAM50 MG PO (18:43)
[2019-08-20 19:30] LABS: UDS - AMPHET NEGATIVE QUAL (NEGATIVE); UDS - BARB NEGATIVE QUAL (NEGATIVE); UDS - BENZO NEGATIVE QUAL (NEGATIVE); UDS - COCAINE NEGATIVE QUAL (NEGATIVE); UDS - OPIATE NEGATIVE QUAL (NEGATIVE); UDS - PCP NEGATIVE QUAL (NEGATIVE); UDS - THC POSITIVE QUAL (NEGATIVE)
[2019-08-20 19:44] VITALS: BP 145/107
== END 2019-08-20 19:54 | disposition home or self-care (01) ==
LOC: D.ER 14:52
PROVIDERS: Family Medicine
DX: I20.9 Angina pectoris, unspecified (principal); I10 Essential (primary) hypertension; Z72.0 Tobacco use; Z86.73 Personal history of transient ischemic attack (TIA), and cerebral infarction without residual deficits; E07.9 Disorder of thyroid, unspecified; R19.7 Diarrhea, unspecified; R39.198 Other difficulties with micturition

== ENCOUNTER 2019-12-16 18:59 | Inpatient (IN) | payer MEDICAID ==
[~2019-12-16] VITALS: Ht 172.7 cm; Wt 68.2 kg
[~2019-12-16 18:59] MED LIST changes: +ALBUTEROL SULF8.5 GM INH; +LEVOFLOXACIN500 MG PO; +LOPRESSOR25 MG PO; -NEURONTIN 300300 MG; +NEURONTIN 300300 MG PO; +Nicoderm [PBKC] TRANSDERM; +PREDNISONE10 MG PO; +SEROQUEL25 MG PO
[2019-12-16 19:30] VITALS: BP 109/66
[2019-12-16 20:08] LABS: BASOPHILS 0.1 % (0-2); EOSINOPHILS 0.7 % (0-7); HEMATOCRIT 31.2 % (36.0-48.0); HEMOGLOBIN 10.1 g/dL (12-16); IMMATURE GRANULOCYTES 0.3 % (0-5); LYMPHOCYTES 9.3 % (15-50); MCH 29.3 pg (26.0-34.0); MCHC 32.4 g/dL (31.0-37.0); MCV 90.4 fL (80.0-100.0); MEAN PLATELET VOLUME 10.7 fL (7.4-10.4); MONOCYTES 9.3 % (2-11); NEUTROPHILS 80.3 % (40-80); PLATELET COUNT 183 10x3/uL (130-400); RBC 3.45 10x6/uL (4.00-5.40); RDW 15.4 % (11.5-14.5); WBC 15.1 10x3/uL (4.8-10.8)
[2019-12-16 20:17] LABS: APTT 29.4 SECONDS (22.8-39.4); INR 1.12 (0.85-1.17); PROTIME 14.3 SECONDS (11.6-15.0)
[2019-12-16 20:19] LABS: CALC OSMOLALITY 256 mosm/kg (275-300); CARBON DIOXIDE 25.9 mmol/L (21.0-32.0); CHLORIDE - SERUM 95 mmol/L (98-107); CREATININE - SERUM 0.7 mg/dL (0.6-1.3); GLUCOSE 88 mg/dL (74-106); POTASSIUM - SERUM 3.2 mmol/L (3.5-5.1); SODIUM 129 mmol/L (136-145); UREA NITROGEN 10 mg/dL (7-18); eGFR NON AFRICAN AMERICAN > 90 mL/min (90-120)
[2019-12-16 20:36] VITALS: BP 111/80
[2019-12-16 20:36] LABS: ALBUMIN 2.5 g/dL (3.4-5.0); ALKALINE PHOSPHATASE 90 U/L (30-120); ALT (SGPT) 16 U/L (10-68); BILIRUBIN - TOTAL 0.42 mg/dL (0.2-1.3); CKMB 0.1 U/L (0.0-3.6); CREATINE KINASE 26 UL (21-215); PRO BNP 330 pg/mL (0-125); PROTEIN - SERUM 6.4 g/dL (6.4-8.2)
[2019-12-16 20:44] LABS: TROPONIN-I < 0.017 ng/mL (0.000-0.060)
[2019-12-16 21:00] VITALS: BP 97/49
--- NOTE | 2019-12-16 22:50 | NUR ---
ADMITTED TO ROOM FROM ER, TRANSFERED FROM STRETCHER TO BED AND AMBULATED TO BATHROOM, REPOPRTS GENERALIZED WEAKNESS, ROXIE REPLACED TO LEFT BUTTOCK INCISION, BLOODY DRAINAGE NOTED, ORIENTIATED TO ROOM, SEE ASSESSMENT, CALL LIGHT IN REACH, NON PRODUCTIVE COUGH NOTED, TEMP NORMAL AT THIS TIME, REPORTS FROM ER NURSE NO COVID-19 TEST DONE
[2019-12-16 23:12] VITALS: BP 99/57; BMI 22.8
[2019-12-17] VITALS (11 sets, daily range): BP systolic 99–134; BP diastolic 57–79; Ht 172.7 cm; Wt 68.2 kg
[2019-12-17 05:19] LABS: BASOPHILS 0.1 % (0-2); EOSINOPHILS 1.2 % (0-7); HEMATOCRIT 30.6 % (36.0-48.0); HEMOGLOBIN 9.6 g/dL (12-16); IMMATURE GRANULOCYTES 0.3 % (0-5); LYMPHOCYTES 4.7 % (15-50); MCH 28.5 pg (26.0-34.0); MCHC 31.4 g/dL (31.0-37.0); MCV 90.8 fL (80.0-100.0); MEAN PLATELET VOLUME 11.1 fL (7.4-10.4); NEUTROPHILS 86.7 % (40-80); PLATELET COUNT 201 10x3/uL (130-400); RBC 3.37 10x6/uL (4.00-5.40); RDW 15.7 % (11.5-14.5); WBC 15.9 10x3/uL (4.8-10.8)
[2019-12-17 05:40] LABS: CALC OSMOLALITY 268 mosm/kg (275-300); CALCIUM 7.5 mg/dL (8.5-10.1); CHLORIDE - SERUM 102 mmol/L (98-107); CREATININE - SERUM 0.7 mg/dL (0.6-1.3); GLUCOSE 107 mg/dL (74-106); MAGNESIUM - SERUM 1.7 mg/dL (1.8-2.4); PHOSPHOROUS 2.6 mg/dL (2.5-4.9); SODIUM 135 mmol/L (136-145); UREA NITROGEN 9 mg/dL (7-18); eGFR NON AFRICAN AMERICAN > 90 mL/min (90-120)
[2019-12-17 05:47] LABS: POTASSIUM - SERUM 3.8 mmol/L (3.5-5.1)
[2019-12-17 06:06] LABS: BILIRUBIN NEGATIVE (NEGATIVE); GLUCOSE NEGATIVE (NEGATIVE); KETONE NEGATIVE (NEGATIVE); NITRITE NEGATIVE (NEGATIVE); UROBILINOGEN NORMAL (NORMAL)
[2019-12-17 06:14] LABS: EPITHELIAL CELLS 0-5 /hpf (0-5); RED CELLS - URINE 0-5 /hpf (0-5); WHITE CELLS - URINE NSEEN /hpf (NEGATIVE)
[2019-12-17 06:15] LABS: BACTERIA FEW /hpf (NEGATIVE)
--- NOTE | 2019-12-17 12:27 | NUR ---
PATIENT CARE ASSUMED FROM ENRIQUE ANN RN
--- NOTE | 2019-12-17 17:42 | NUR ---
PERCOCET GIVEN FOR PAIN LEVEL OF 9/10. ALSO PROVIDED PT WITH CUP OF ICE WATER AND DINNER TRAY. PT DENIES ANY OTHER NEEDS AT THIS TIME. CALL LIGHT IN REACH, NAD NOTED, WILL CONTINUE TO MONITOR.
--- NOTE | 2019-12-17 18:02 | NUR ---
PROVIDED PT WITH SPUTUM COLLECTION CUP.
[2019-12-18] VITALS: BP 160/53
[2019-12-18 04:55] LABS: BASOPHILS 0.1 % (0-2); EOSINOPHILS 3.9 % (0-7); HEMATOCRIT 28.4 % (36.0-48.0); HEMOGLOBIN 8.7 g/dL (12-16); IMMATURE GRANULOCYTES 0.2 % (0-5); LYMPHOCYTES 11.3 % (15-50); MCH 28.5 pg (26.0-34.0); MCHC 30.6 g/dL (31.0-37.0); MCV 93.1 fL (80.0-100.0); MEAN PLATELET VOLUME 10.5 fL (7.4-10.4); MONOCYTES 5.4 % (2-11); NEUTROPHILS 79.1 % (40-80); PLATELET COUNT 195 10x3/uL (130-400); RBC 3.05 10x6/uL (4.00-5.40); RDW 16.2 % (11.5-14.5); WBC 12.9 10x3/uL (4.8-10.8)
[2019-12-18 05:09] LABS: CALC OSMOLALITY 264 mosm/kg (275-300); CALCIUM 7.2 mg/dL (8.5-10.1); CARBON DIOXIDE 27.4 mmol/L (21.0-32.0); CHLORIDE - SERUM 101 mmol/L (98-107); CREATININE - SERUM 0.6 mg/dL (0.6-1.3); GLUCOSE 105 mg/dL (74-106); MAGNESIUM - SERUM 1.8 mg/dL (1.8-2.4); PHOSPHOROUS 2.7 mg/dL (2.5-4.9); POTASSIUM - SERUM 3.5 mmol/L (3.5-5.1); SODIUM 133 mmol/L (136-145); THYROID STIMULATING HORMONE 1.68 uIU/mL (0.36-3.74); UREA NITROGEN 10 mg/dL (7-18); eGFR NON AFRICAN AMERICAN > 90 mL/min (90-120)
--- NOTE | 2019-12-18 08:06 | OP ---
PATIENT NAME: ELIZABETH HUBER MEDICAL RECORD: [id number] :63 LOCATION:D.M2 D.2133 ADMISSION DATE:12/16/19 SURGEON: BENITO ROSA MD DATE OF OPERATION: 12/17/2019 SURGEON: Benito Rosa MD PREOPERATIVE DIAGNOSIS: Left buttock abscess. POSTOPERATIVE DIAGNOSIS: Perirectal abscess. PROCEDURE PERFORMED: Incision and drainage of perirectal abscess 8 x 8 x 8 cm. ANESTHESIA: General. COMPLICATIONS: None. SPECIMENS: Anaerobic and aerobic cultures. Case was grossly contaminated. ESTIMATED BLOOD LOSS: Minimal. OPERATIVE COURSE: After consent was obtained, the patient was taken to the operating room and placed in the supine position on the operating table. Next, general anesthesia was given. A timeout was taken to confirm the correct patient and procedure. The patient was then placed in the right lateral decubitus position. The perineum and buttock were prepped and draped in typical sterile fashion. The area of skin opening was excised in an elliptical incision that was 2 cm in length x 1 cm in width. There was a large abscess cavity that tracked all the way to the rectum. The abscess cavity was 8 x 8 x 8 cm. This was a multiloculated complex abscess. It did track all the way to the rectum. Loculations were broke using blunt finger dissection. There was no active extravasation of pus noted coming from the rectum on exam. The wound was copiously irrigated with saline. The wound was then packed with an 2-inch Kerlix soaked in peroxide and Betadine. The packing was then covered with 4 x 4 dressings and surgical underwear. After the abscess was entered, anaerobic and aerobic cultures were obtained and sent for Gram stain and sensitivity. At the end of the case, all needle and instrument counts were correct. No complications occurred. The patient was extubated and transferred to the PACU in stable condition. TRANSINT:[id number] Voice Confirmation ID: [id number] DOCUMENT ID: [id number] BENITO ROSA MD at 0806 CC: [id number] DICTATION DATE: 12/17/19 1207 LANDSCAPE SPECIALIST: 12/17/19 1515 [place] [address]
[2019-12-18 08:30] VITALS: BP 96/70
--- NOTE | 2019-12-18 12:07 | NUR ---
PERCOCET GIVEN FOR PAIN LEVEL OF 10/10. PT STILL WANTING SOMETHING STRONGER FOR PAIN. WILL CONTACT DOCTOR TO SEE IF PT CAN HAVE SOMETHING STRONGER.
[2019-12-18 12:09] VITALS: BP 119/71
--- NOTE | 2019-12-18 14:00 | NUR ---
SPOKE WITH DR. JEFFRIES AND INFORMED HIM THAT PT IS REQUESTING SOMETHING DIFFERENT FOR PAIN MEDICATION BECAUSE SHE IS GETTING PERCOCET Q4PRN AND PT IS CALLING 2HOURS EARLY. PT ALSO REQUESTING DILAUDID TO DRESSING CHANGE. NEW ORDER TO CHANGE PERCOCET TO Q3PRN AND GIVE IT ONE HOUR BEFORE DRESSING CHANGE. IF PT REFUSES TO HAVE DRESSING CHANGE DUE TO NOT HAVING DILAUDID, THEN CHART REFUSE AND HAVE DR. ROSA ADDRESS IT WITH PT IN THE AM.
--- NOTE | 2019-12-18 14:49 | NUR ---
LT HAND IV INFILTRATED, D/C IV WITH CATHETER TIP INTACT. X2 NURSES TRIED STARTING NEW IV, WITH NO SUCCESS. CALLED VASCULAR ACCESS NURSE AND LEFT MS FOR HER TO CALL THIS NURSE BACK.
[2019-12-18 16:03] VITALS: BP 105/58
--- NOTE | 2019-12-18 16:03 | NUR ---
PERCOCET GIVEN FOR PAIN LEVEL OF 9/10. WAITING ON ER NURSE TO COME TRY TO START IV.
--- NOTE | 2019-12-18 18:16 | NUR ---
1MG OF DILAUDID GIVEN FOR PAIN LEVEL OF 9/10. NEW 22G IV STARTED TO RT FA BY KAR WORKMAN. PT DENIES ANY OTHER NEEDS AT THIS TIME. CALL LIGHT IN REACH, NAD NOTED,W ILL CONTINUE TO MONITOR.
[2019-12-18 20:51] VITALS: BP 110/79
[2019-12-19 04:32] LABS: BASOPHILS 0.4 % (0-2); EOSINOPHILS 7.1 % (0-7); HEMATOCRIT 27.8 % (36.0-48.0); HEMOGLOBIN 8.5 g/dL (12-16); IMMATURE GRANULOCYTES 0.4 % (0-5); LYMPHOCYTES 16.7 % (15-50); MCH 28.3 pg (26.0-34.0); MCHC 30.6 g/dL (31.0-37.0); MCV 92.7 fL (80.0-100.0); MEAN PLATELET VOLUME 10.6 fL (7.4-10.4); MONOCYTES 7.3 % (2-11); NEUTROPHILS 68.1 % (40-80); PLATELET COUNT 234 10x3/uL (130-400); RDW 16.3 % (11.5-14.5)
[2019-12-19 04:44] LABS: WBC 7.9 10x3/uL (4.8-10.8)
[2019-12-19 04:53] LABS: CALC OSMOLALITY 273 mosm/kg (275-300); CALCIUM 7.8 mg/dL (8.5-10.1); CARBON DIOXIDE 29.2 mmol/L (21.0-32.0); CHLORIDE - SERUM 102 mmol/L (98-107); CREATININE - SERUM 0.7 mg/dL (0.6-1.3); GLUCOSE 113 mg/dL (74-106); POTASSIUM - SERUM 3.9 mmol/L (3.5-5.1); SODIUM 137 mmol/L (136-145); UREA NITROGEN 9 mg/dL (7-18); eGFR NON AFRICAN AMERICAN > 90 mL/min (90-120)
[2019-12-19 04:55] LABS: PHOSPHOROUS 4.2 mg/dL (2.5-4.9)
--- NOTE | 2019-12-19 08:18 | MORECARE ---
CASE MANAGEMENT DISCHARGE SUMMARY PATIENT: ELIZABETH HUBER UNIT: [id number] ADM DATE: 12/16/19 AGE: 54 : 63 SEX: F ROOM/BED: D.2133 AUTHOR: SHRUTHI HAYES PHYSICIAN: REFERRING PHYSICIAN: BRAYAN EDUARDO MD DATE OF SERVICE: 12/19/19 Discharge Plan Patient Name: ELIZABETH HUBER [facility] [facility] 1965 Planned Disposition: Home Anticipated Discharge Date: Discharge Date: Expected LOS: Initial Reviewer: [email or web address] Initial Review Date: 12/16/2019 Generated: 12/19/19 9:18 am DCPIA - Discharge Planning Initial Assessment Updated by [email or web address]: Lindsey Queen on 12/19/19 8:13 am * Is the patient Alert and Oriented? Yes * How many steps to enter\exit or inside your home? 3/0 * Preadmission Environment Home with Family * ADLs Independent * Equipment None * Verbal permission to speak to the caregivers and representatives has been obtained from the patient. N/A * Community resources currently utilized None * Additional services required to return to the preadmission environment? No * Can the patient safely return to the preadmission environment? Yes * Has this patient been hospitalized within the prior 30 days at any hospital? No Patient Name: ELIZABETH HUBER Page 10756 at 0818 All edits/amendments must be made on the electronic document DICTATION DATE: 12/19/19817 VISITOR SERVICES INFORMATION ASSISTANT: PAULY 12/19/19817 RPT#: [id number] DC DATE: STATUS: ADM IN [facility] [address] [place] [address] END OF REPORT
--- NOTE | 2019-12-19 08:26 | MORECARE ---
CASE MANAGEMENT DISCHARGE SUMMARY PATIENT: ELIZABETH HUBER UNIT: [id number] ADM DATE: 12/16/19 AGE: 54 : 63 SEX: F ROOM/BED: D.4523 AUTHOR: ABIGAIL,DOC PHYSICIAN: REFERRING PHYSICIAN: BRAYAN EDUARDO MD DATE OF SERVICE: 12/19/19 Discharge Plan Patient Name: ELIZABETH HUBER Facility: [facility]:[place] : 1965 Planned Disposition: Home Anticipated Discharge Date: Discharge Date: Expected LOS: Initial Reviewer: [email or web address] Initial Review Date: 12/16/2019 Generated: 12/19/19 9:26 am Comments DCP- Discharge Planning Updated by [id number]: Lindsey Queen on 12/19/19 7:[address] Patient Name: ELIZABETH HUBER Admission Status: ER Accout number: [id number] Admission Date: 12-16-2019 : 1965 Admission Diagnosis:SEPSIS, UNSPECIFIED ORGANISM Attending: BRAYAN EDUARDO Current LOS: 3 Anticipated DC Date: Planned Disposition: Home Primary Insurance: MEDICAID [place] Discharge Planning Comments: CM met with patient to complete initial dc planning assessment. CM educated patient on the CM role and verbal consent given by patient to complete assessment. CM verified patient's address, phone number, and emergency contact phone numbers. Patient stated her number has changed, and she does not recall the number. States she lives independently with her adult blind daughter without any needs. States her brother will pick her up at discharge. At discharge patient plans to return home and feels this is a safe discharge. CM discussed availability of home health, rehab services, and medical equipment. Patient denied known discharge needs at this time. CM will continue to follow and will assist as needed with dc plans/needs. Pre Sales Architect: Lindsey Queen DCPIA - Discharge Planning Initial Assessment Updated by [email or web address]: Lindsey Queen on 12/19/19 8:13 am * Is the patient Alert and Oriented? Yes * How many steps to enter\exit or inside your home? 3/0 * Preadmission Environment Home with Family * ADLs Independent * Equipment None * Verbal permission to speak to the caregivers and representatives has been obtained from the patient. N/A * Community resources currently utilized None * Additional services required to return to the preadmission environment? No * Can the patient safely return to the preadmission environment? Yes * Has this patient been hospitalized within the prior 30 days at any hospital? No Last DP export: 12/19/19 7:18 am Patient Name: ELIZABETH HUBER Page [phone] at 0826 All edits/amendments must be made on the electronic document DICTATION DATE: 12/19/19825 AML ANALYST: PAULY 12/19/19825 RPT#: [id number] DC DATE: STATUS: ADM IN [facility] [address] [place] [address] END OF REPORT
--- NOTE | 2019-12-19 08:30 | NUR ---
PT LYING ON LEFT SIDE. RR EVEN AND UNLABORED ON RA. PT COMPLAINS OF PAIN EVERYWHERE. SHE HAS A R FA PIV THAT IS SL. PAIN MEDS GIVEN AT THIS TIME. BED LOCKED AND IN LOWEST POSITION, CALL LIGHT WITHIN REACH. WILL CTM
--- NOTE | 2019-12-19 14:02 | NUR ---
UPON ASSESSING PTS WOUND ON HER L BUTTOCKS PT STATES THAT HER PACKING FELL OUT LAST NIGHT. SHE REFUSED TO LET ME PACK WOUND UNTIL IT WAS TIME FOR HER PAIN SHOT. APPLIED MEPLEX. WILL CTM
--- NOTE | 2019-12-19 14:41 | NUR ---
I have reviewed this patient and I concur with the Shift Assessment completed by the Licensed Practical Nurse today this shift.
--- NOTE | 2019-12-19 15:51 | MORECARE ---
CASE MANAGEMENT DISCHARGE SUMMARY PATIENT: ELIZABETH HUBER UNIT: [id number] ADM DATE: 12/16/19 AGE: 54 : 63 SEX: F ROOM/BED: D.2223 AUTHOR: ABIGAIL,DOC PHYSICIAN: REFERRING PHYSICIAN: BRAYAN EDUARDO MD DATE OF SERVICE: 12/19/19 Discharge Plan Patient Name: ELIZABETH HUBER Facility: [facility]:[place] : 1965 Planned Disposition: Home Anticipated Discharge Date: Discharge Date: Expected LOS: Initial Reviewer: [email or web address] Initial Review Date: 12/16/2019 Generated: 12/19/19 4:50 pm Comments DCP- Discharge Planning Updated by [email or web address]: Israel Baugh on 12/19/19 2:[address] Patient Name: ELIZABETH HUBER Encounter No: [id number] : 1965 Primary Insurance: MEDICAID [place] Anticipated DC Date: Planned Disposition: Home DCP follow-up note: CM RECEIVED HOME HEALTH ORDER FOR DAILY WOUND CARE / PACKING. CM CALLED AND SPOKE TO PT VIA PHONE IN ROOM DUE TO CURRENT INFECTION CONTROL PROTOCOL. PRIMARY CARE DOCTOR IS DR. EARL. PT HAS HAD HOME HEALTH IN THE PAST, BUT CANNOT REMEMBER THE NAME OF THE COMPANY. CM REVIEWED NAMES OF ALL LOCAL PROVIDERS. PT HAS NO CHOICE IN PROVIDER. PT STATES SHE HAS NO TEACHABLE CAREGIVER TO ASSIST WITH WOUND CARE AT HOME HER DAUGHTER IS LEGALLY BLIND AND PT HAS NO OTHER PERSONS THAT WOULD BE WILLING TO ASSIST WITH WOUND CARE. PT HAS NO CAR TO DRIVE FOR SERVICES, BUT THINKS THAT SHE HAS A NEIGHBOR THAT MAY DRIVE HER DAILY FOR WOUND CARE AT THE DOCTOR IF NEEDED. PT HAS MEDICAID ONLY AND IS NOT WILLING FOR LONGTERM CARE PLACEMENT IN [facility]. CM CALLED [facility], SPOKE TO ABBIE, THEY ARE NOT ABLE TO TAKE WITH NO ENDPOINT AND NO TEACHABLE CAREGIVER. CM CALLED [facility], SPOKE TO EMILY, THEY WILL NOT ACCEPT WITHOUT TEACHABLE CAREGIVER. CM CALLED [facility], SPOKE TO JACQUELINE, THEY WILL NOT ACCEPT WITHOUT A TEACHABLE CAREGIVER. CM CALLED [facility], SPOKE TO HELENE, THEY WILL NOT ACCEPT WITHOUT A TEACHABLE CAREGIVER. CM CALLED [facility], , SPOKE TO BARBAAR, THEY WILL ACCEPT FOR DAILY WOUND CARE FOR A VERY SHORT PERIOD OF TIME AND WILL TALK TO DR. ROSA REGARDING OPTIONS OTHER THAN DAILY WOUND CARE. [facility] CAN ADMIT ON Monday12-22-19. CM FAXED REFERRAL TO [facility] AT [phone]. [facility] WILL ADMIT FOR DAILY WOUND CARE STARTING ON 12-22-19, AND WILL DO DAILY FOR A VERY SHORT PERIOD OF TIME; DUE TO PT NOT HAVING TEACHABLE CAREGIVER, [facility] WILL DISCUSS OTHER OPTIONS (OTHER THAN DAILY PACKING AND DRESSING) THAT MAY MEET PT'S NEEDS. FOR DISCHARGE, CALL [facility] AT [phone], FAX DISCHARGE INFORMATION TO [facility] AT [phone]. Israel Baugh. CASE MANAGEMENT DCP- Discharge Planning Updated by [id number]: Lindsey Queen on 12/19/19 7:[address] Patient Name: ELIZABETH HUBER Admission Status: ER Accout number: [id number] Admission Date: 12-16-2019 : 1965 Admission Diagnosis:SEPSIS, UNSPECIFIED ORGANISM Attending: BRAYAN EDUARDO Current LOS: 3 Anticipated DC Date: Planned Disposition: Home Primary Insurance: MEDICAID [place] Discharge Planning Comments: CM met with patient to complete initial dc planning assessment. CM educated patient on the CM role and verbal consent given by patient to complete assessment. CM verified patient's address, phone number, and emergency contact phone numbers. Patient stated her number has changed, and she does not recall the number. States she lives independently with her adult blind daughter without any needs. States her brother will pick her up at discharge. At discharge patient plans to return home and feels this is a safe discharge. CM discussed availability of home health, rehab services, and medical equipment. Patient denied known discharge needs at this time. CM will continue to follow and will assist as needed with dc plans/needs. Forensic Sergeant: Lindsey Queen DCPIA - Discharge Planning Initial Assessment Updated by [email or web address]: Lindsey Queen on 12/19/19 8:13 am * Is the patient Alert and Oriented? Yes * How many steps to enter\exit or inside your home? 3/0 * Preadmission Environment Home with Family * ADLs Independent * Equipment None * Verbal permission to speak to the caregivers and representatives has been obtained from the patient. N/A * Community resources currently utilized None * Additional services required to return to the preadmission environment? No * Can the patient safely return to the preadmission environment? Yes * Has this patient been hospitalized within the prior 30 days at any hospital? No External [facility]iders [facility] Next Contact Date: 12/19/2019 Service Request Date: Service Type: Resolution: Reviewer: Comments: Last DP export: 12/19/19 7:26 am Patient Name: ELIZABETH HUBER Page [phone] at 1551 All edits/amendments must be made on the electronic document DICTATION DATE: 12/19/19 1550 HOOP DRIVING MACHINE OPERATOR: PAULY 12/19/19 1550 RPT#: [id number] DC DATE: STATUS: ADM IN [facility] [address] [place] [address] END OF REPORT
[2019-12-19 16:27] VITALS: BP 103/59
--- NOTE | 2019-12-19 16:59 | NUR ---
PATIENT ADMITTED TO ROOM 2223. DENIES NEEDS. WILL CONTINUE TO MONITOR.
[2019-12-19 20:00] VITALS: BP 102/68
[2019-12-20] VITALS: BP 99/54
--- NOTE | 2019-12-20 03:03 | NUR ---
PT RESTING IN BED. EYES CLOSED. NO SIGNS OF DISTRESS. BREATHING EVEN AND UNLABORED. IV SITE RT FA DRESSING CLEAN DRY AND INTACT. NO SIGNS OF INFECTION OR INFULTRATION. LUNG SOUNDS CLEAR. BOWEL SOUNDS ACTIVE. WILL CONTINUE PLAN OF CARE. CALL LIGHT IN REACH. BED LOWERED AND LOCKED. BED RAILS UPX2
[2019-12-20 04:00] VITALS: BP 113/57
[2019-12-20 04:33] LABS: BASOPHILS 0.3 % (0-2); EOSINOPHILS 9.4 % (0-7); HEMATOCRIT 29.7 % (36.0-48.0); HEMOGLOBIN 9.1 g/dL (12-16); IMMATURE GRANULOCYTES 0.7 % (0-5); LYMPHOCYTES 23.1 % (15-50); MCH 28.4 pg (26.0-34.0); MCHC 30.6 g/dL (31.0-37.0); MCV 92.8 fL (80.0-100.0); MEAN PLATELET VOLUME 10.2 fL (7.4-10.4); MONOCYTES 6.4 % (2-11); NEUTROPHILS 60.1 % (40-80); RDW 16.2 % (11.5-14.5)
[2019-12-20 04:54] LABS: CALC OSMOLALITY 274 mosm/kg (275-300); CALCIUM 8.3 mg/dL (8.5-10.1); CARBON DIOXIDE 30.4 mmol/L (21.0-32.0); CHLORIDE - SERUM 101 mmol/L (98-107); CREATININE - SERUM 0.7 mg/dL (0.6-1.3); GLUCOSE 95 mg/dL (74-106); PHOSPHOROUS 5.1 mg/dL (2.5-4.9); POTASSIUM - SERUM 3.9 mmol/L (3.5-5.1); SODIUM 138 mmol/L (136-145); UREA NITROGEN 11 mg/dL (7-18); eGFR NON AFRICAN AMERICAN > 90 mL/min (90-120)
[2019-12-20 04:56] LABS: PLATELET COUNT 287 10x3/uL (130-400)
--- NOTE | 2019-12-20 06:20 | NUR ---
I have reviewed this patient and I concur with the Shift Assessment completed by the Licensed Practical Nurse today this shift.
--- NOTE | 2019-12-20 08:00 | NUR ---
ASSESSMENT PER FLOW SHEET. PATIENT IS WITHOUT DISTRESS.MONITOR FOR NEEDS
[2019-12-20 09:38] VITALS: BP 135/98
[2019-12-20] MEDS ORDERED: LEVAQUIN750 MG PO (10:39)
--- NOTE | 2019-12-20 11:34 | MORECARE ---
CASE MANAGEMENT DISCHARGE SUMMARY PATIENT: ELIZABETH HUBER UNIT: [id number] ADM DATE: 12/16/19 AGE: 54 : 63 SEX: F ROOM/BED: D.2223 AUTHOR: ABIGAIL,DOC PHYSICIAN: REFERRING PHYSICIAN: BRAYAN EDUARDO MD DATE OF SERVICE: 12/20/19 Discharge Plan Patient Name: ELIZABETH HUBER Facility: [facility]:[place] : 1965 Planned Disposition: Home Anticipated Discharge Date: Discharge Date: Expected LOS: Initial Reviewer: [email or web address] Initial Review Date: 12/16/2019 Generated: 12/20/19 12:34 pm Comments DCP- Discharge Planning Updated by [id number]: Israel Baugh on 12/19/19 2:[address] Patient Name: ELIZABETH HUBER Encounter No: [id number] : 1965 Primary Insurance: MEDICAID [place] Anticipated DC Date: Planned Disposition: Home DCP follow-up note: CM RECEIVED HOME HEALTH ORDER FOR DAILY WOUND CARE / PACKING. CM CALLED AND SPOKE TO PT VIA PHONE IN ROOM DUE TO CURRENT INFECTION CONTROL PROTOCOL. PRIMARY CARE DOCTOR IS DR. EARL. PT HAS HAD HOME HEALTH IN THE PAST, BUT CANNOT REMEMBER THE NAME OF THE COMPANY. CM REVIEWED NAMES OF ALL LOCAL PROVIDERS. PT HAS NO CHOICE IN PROVIDER. PT STATES SHE HAS NO TEACHABLE CAREGIVER TO ASSIST WITH WOUND CARE AT HOME HER DAUGHTER IS LEGALLY BLIND AND PT HAS NO OTHER PERSONS THAT WOULD BE WILLING TO ASSIST WITH WOUND CARE. PT HAS NO CAR TO DRIVE FOR SERVICES, BUT THINKS THAT SHE HAS A NEIGHBOR THAT MAY DRIVE HER DAILY FOR WOUND CARE AT THE DOCTOR IF NEEDED. PT HAS MEDICAID ONLY AND IS NOT WILLING FOR USP CARE PLACEMENT IN [facility]. CM CALLED [facility], SPOKE TO ABBIE, THEY ARE NOT ABLE TO TAKE WITH NO ENDPOINT AND NO TEACHABLE CAREGIVER. CM CALLED [facility], SPOKE TO EMILY, THEY WILL NOT ACCEPT WITHOUT TEACHABLE CAREGIVER. CM CALLED [facility], SPOKE TO JACQUELINE, THEY WILL NOT ACCEPT WITHOUT A TEACHABLE CAREGIVER. CM CALLED [facility], SPOKE TO HELENE, THEY WILL NOT ACCEPT WITHOUT A TEACHABLE CAREGIVER. CM CALLED [facility], , SPOKE TO BARBARA, THEY WILL ACCEPT FOR DAILY WOUND CARE FOR A VERY SHORT PERIOD OF TIME AND WILL TALK TO DR. ROSA REGARDING OPTIONS OTHER THAN DAILY WOUND CARE. [facility] CAN ADMIT ON Monday12-22-19. CM FAXED REFERRAL TO [facility] AT [phone]. [facility] WILL ADMIT FOR DAILY WOUND CARE STARTING ON 12-22-19, AND WILL DO DAILY FOR A VERY SHORT PERIOD OF TIME; DUE TO PT NOT HAVING TEACHABLE CAREGIVER, [facility] WILL DISCUSS OTHER OPTIONS (OTHER THAN DAILY PACKING AND DRESSING) THAT MAY MEET PT'S NEEDS. FOR DISCHARGE, CALL [facility] AT [phone], FAX DISCHARGE INFORMATION TO [facility] AT [phone]. Israel Baugh. CASE MANAGEMENT DCP- Discharge Planning Updated by [email or web address]: Lindsey Queen on 12/19/19 7:[address] Patient Name: ELIZABETH HUBER Admission Status: ER Accout number: [id number] Admission Date: 12-16-2019 : 1965 Admission Diagnosis:SEPSIS, UNSPECIFIED ORGANISM Attending: BRAYAN EDUARDO Current LOS: 3 Anticipated DC Date: Planned Disposition: Home Primary Insurance: MEDICAID [place] Discharge Planning Comments: CM met with patient to complete initial dc planning assessment. CM educated patient on the CM role and verbal consent given by patient to complete assessment. CM verified patient's address, phone number, and emergency contact phone numbers. Patient stated her number has changed, and she does not recall the number. States she lives independently with her adult blind daughter without any needs. States her brother will pick her up at discharge. At discharge patient plans to return home and feels this is a safe discharge. CM discussed availability of home health, rehab services, and medical equipment. Patient denied known discharge needs at this time. CM will continue to follow and will assist as needed with dc plans/needs. Body Die Maker: Lindsey Queen DCPIA - Discharge Planning Initial Assessment Updated by [email or web address]: Lindsey Queen on 12/19/19 8:13 am * Is the patient Alert and Oriented? Yes * How many steps to enter\exit or inside your home? 3/0 * Preadmission Environment Home with Family * ADLs Independent * Equipment None * Verbal permission to speak to the caregivers and representatives has been obtained from the patient. N/A * Community resources currently utilized None * Additional services required to return to the preadmission environment? No * Can the patient safely return to the preadmission environment? Yes * Has this patient been hospitalized within the prior 30 days at any hospital? No Last DP export: 12/19/19 2:51 pm Patient Name: ELIZABETH HUBER Page [phone] at 1134 All edits/amendments must be made on the electronic document DICTATION DATE: 12/20/191133 BICYCLE DESIGNER: PAULY 12/20/191133 RPT#: [id number] DC DATE: STATUS: ADM IN [facility] [address] [place] [address] END OF REPORT
--- NOTE | 2019-12-20 11:48 | MORECARE ---
CASE MANAGEMENT DISCHARGE SUMMARY PATIENT: ELIZABETH HUBER UNIT: [id number] ADM DATE: 12/16/19 AGE: 54 : 63 SEX: F ROOM/BED: D.2223 AUTHOR: ABIGAIL,DOC PHYSICIAN: REFERRING PHYSICIAN: BRAYAN EDUARDO MD DATE OF SERVICE: 12/20/19 Discharge Plan Patient Name: ELIZABETH HUEBR Facility: [facility]:[place] : 1965 Planned Disposition: Home Anticipated Discharge Date: Discharge Date: Expected LOS: Initial Reviewer: [email or web address] Initial Review Date: 12/16/2019 Generated: 12/20/19 12:48 pm Comments DCP- Discharge Planning Updated by [id number]: Tanisha Moran on 12/20/19 10:[address] I informed patient that she has discharge orders today if ok with her ad terminal makeup operator. I informed her that [facility] will not come out until Monday and to have her nurse provide extra dressing supplies if needed to reinforce her dressing. She declines terminal gauger supervisor care. She states she should have family transport her home today, but has not called them yet. Home today with [facility]. I called and spoke with Alejandra and dc orders faxed. DCP- Discharge Planning Updated by [id number]: Israel Baugh on 12/19/19 2:[address] Patient Name: ELIZABETH HUBER Encounter No: [id number] : 1965 Primary Insurance: MED[place]ID [place] Anticipated DC Date: Planned Disposition: Home DCP follow-up note: CM RECEIVED HOME HEALTH ORDER FOR DAILY WOUND CARE / PACKING. CM CALLED AND SPOKE TO PT VIA PHONE IN ROOM DUE TO CURRENT INFECTION CONTROL PROTOCOL. PRIMARY CARE DOCTOR IS DR. EARL. PT HAS HAD HOME HEALTH IN THE PAST, BUT CANNOT REMEMBER THE NAME OF THE COMPANY. CM REVIEWED NAMES OF ALL LOCAL PROVIDERS. PT HAS NO CHOICE IN PROVIDER. PT STATES SHE HAS NO TEACHABLE CAREGIVER TO ASSIST WITH WOUND CARE AT HOME HER DAUGHTER IS LEGALLY BLIND AND PT HAS NO OTHER PERSONS THAT WOULD BE WILLING TO ASSIST WITH WOUND CARE. PT HAS NO CAR TO DRIVE FOR SERVICES, BUT THINKS THAT SHE HAS A NEIGHBOR THAT MAY DRIVE HER DAILY FOR WOUND CARE AT THE DOCTOR IF NEEDED. PT HAS MEDICAID ONLY AND IS NOT WILLING FOR CUSTODIAL CARE PLACEMENT IN ASSISTED. CM CALLED [facility], SPOKE TO ABBIE, THEY ARE NOT ABLE TO TAKE WITH NO ENDPOINT AND NO TEACHABLE CAREGIVER. CM CALLED [facility], SPOKE TO EMILY, THEY WILL NOT ACCEPT WITHOUT TEACHABLE CAREGIVER. CM CALLED [facility], SPOKE TO JACQUELINE, THEY WILL NOT ACCEPT WITHOUT A TEACHABLE CAREGIVER. CM CALLED [facility], SPOKE TO HELENE, THEY WILL NOT ACCEPT WITHOUT A TEACHABLE CAREGIVER. CM CALLED [facility], , SPOKE TO ALEJANDRA, THEY WILL ACCEPT FOR DAILY WOUND CARE FOR A VERY SHORT PERIOD OF TIME AND WILL TALK TO DR. ROSA REGARDING OPTIONS OTHER THAN DAILY WOUND CARE. [facility] CAN ADMIT ON Monday12-22-19. CM FAXED REFERRAL TO [facility] AT [phone]. [facility] WILL ADMIT FOR DAILY WOUND CARE STARTING ON 12-22-19, AND WILL DO DAILY FOR A VERY SHORT PERIOD OF TIME; DUE TO PT NOT HAVING TEACHABLE CAREGIVER, [facility] WILL DISCUSS OTHER OPTIONS (OTHER THAN DAILY PACKING AND DRESSING) THAT MAY MEET PT'S NEEDS. FOR DISCHARGE, CALL [facility] AT [phone], FAX DISCHARGE INFORMATION TO [facility] AT [phone]. Israel Baugh. CASE MANAGEMENT DCP- Discharge Planning Updated by [id number]: Lindsey Queen on 12/19/19 7:[address] Patient Name: ELIZABETH HUBER Admission Status: ER Accout number: [id number] Admission Date: 12-16-2019 : 1965 Admission Diagnosis:SEPSIS, UNSPECIFIED ORGANISM Attending: BRAYAN EDUARDO Current LOS: 3 Anticipated DC Date: Planned Disposition: Home Primary Insurance: MEDICAID [place] Discharge Planning Comments: CM met with patient to complete initial dc planning assessment. CM educated patient on the CM role and verbal consent given by patient to complete assessment. CM verified patient's address, phone number, and emergency contact phone numbers. Patient stated her number has changed, and she does not recall the number. States she lives independently with her adult blind daughter without any needs. States her brother will pick her up at discharge. At discharge patient plans to return home and feels this is a safe discharge. CM discussed availability of home health, rehab services, and medical equipment. Patient denied known discharge needs at this time. CM will continue to follow and will assist as needed with dc plans/needs. Thermal Intelligence Analyst: Lindsey Queen DCPIA - Discharge Planning Initial Assessment Updated by [id number]: Lindsey Queen on 12/19/19 8:13 am * Is the patient Alert and Oriented? Yes * How many steps to enter\exit or inside your home? 3/0 * Preadmission Environment Home with Family * ADLs Independent * Equipment None * Verbal permission to speak to the caregivers and representatives has been obtained from the patient. N/A * Community resources currently utilized None * Additional services required to return to the preadmission environment? No * Can the patient safely return to the preadmission environment? Yes * Has this patient been hospitalized within the prior 30 days at any hospital? No Coverage Notice Reviewer: [email or web address] Kenn Moran Notice Issued Date-Time: 12/20/2019 11:35 Notice Type: Patient Choice Letter Notice Delivered To: Patient Relationship to Patient: Self Sodium Chlorite Operator Name: Delivery Method: HAND - Hand Delivered Eva Days: Prior Verbal Notification: Recipient Understood Notice: Yes Recipient Signature: Yes Med Rec Note Co-signed by Attending: Coverage Notice Comment: Verbal refusal of not going to a LTC facility. Last DP export: 12/20/19 10:34 a Patient Name: ELIZABETH HUBER Page [phone] at 1148 All edits/amendments must be made on the electronic document DICTATION DATE: 12/20/19 1148 BOTTLE SORTER: PAULY 12/20/19 1148 RPT#: [id number] DC DATE: STATUS: ADM IN [facility] [address] [place] [address] END OF REPORT
--- NOTE | 2019-12-20 12:44 | NUR ---
WOUND CLEANED AND DRESSING CHANGED ORDERED. DISCHARGE INSTRUCTINS,STATES UNDERSTANDING.
[2019-12-20 13:06] VITALS: BP 120/77
--- NOTE | 2019-12-20 14:41 | NUR ---
SCRIPT TO PATIENT FOR PAIN MED.PER DR JEFFRIES. IV DCD WITH CATH TIP INTACT. WAITING ON RIDE HOME.
--- NOTE | 2019-12-20 19:01 | NUR ---
EATING DINNER AFTER NAP. STILL WAITING ON FAMILY TO COME AND GIVE HER RIDE HOME. SHE REMAINS WITHOUT DISTRESS.
--- NOTE | 2019-12-20 19:21 | NUR ---
LEFT UNIT VIA WHEELCHAIR FOR TRANSPORT HOME
--- NOTE | 2019-12-21 12:01 | MORECARE ---
CASE MANAGEMENT DISCHARGE SUMMARY PATIENT: ELIZABETH HUBER UNIT: [id number] ADM DATE: 12/16/19 AGE: 54 : 63 SEX: F ROOM/BED: D.2223 AUTHOR: ABIGAIL,DOC PHYSICIAN: REFERRING PHYSICIAN: BRAYAN EDUARDO MD DATE OF SERVICE: 12/21/19 Discharge Plan Patient Name: ELIZABETH HUBER Facility: [facility]:[place] : 1965 Planned Disposition: Home Anticipated Discharge Date: Discharge Date: 12/20/2019 Expected LOS: 0 Initial Reviewer: [email or web address] Initial Review Date: 12/16/2019 Generated: 12/21/19 1:00 pm Comments DCP- Discharge Planning Updated by [id number]: Tanisha Moran on 12/20/19 10:[address] I informed patient that she has discharge orders today if ok with her parking lot chauffeur. I informed her that [facility] will not come out until Monday and to have her nurse provide extra dressing supplies if needed to reinforce her dressing. She declines terminal system operator care. She states she should have family transport her home today, but has not called them yet. Home today with [facility]. I called and spoke with Alejandra and dc orders faxed. DCP- Discharge Planning Updated by [id number]: Israel Baugh on 12/19/19 2:[address] Patient Name: ELIZABETH HUBER Encounter No: [id number] : 1965 Primary Insurance: MEDICAID [place] Anticipated DC Date: Planned Disposition: Home DCP follow-up note: CM RECEIVED HOME HEALTH ORDER FOR DAILY WOUND CARE / PACKING. CM CALLED AND SPOKE TO PT VIA PHONE IN ROOM DUE TO CURRENT INFECTION CONTROL PROTOCOL. PRIMARY CARE DOCTOR IS DR. EARL. PT HAS HAD HOME HEALTH IN THE PAST, BUT CANNOT REMEMBER THE NAME OF THE COMPANY. CM REVIEWED NAMES OF ALL LOCAL PROVIDERS. PT HAS NO CHOICE IN PROVIDER. PT STATES SHE HAS NO TEACHABLE CAREGIVER TO ASSIST WITH WOUND CARE AT HOME HER DAUGHTER IS LEGALLY BLIND AND PT HAS NO OTHER PERSONS THAT WOULD BE WILLING TO ASSIST WITH WOUND CARE. PT HAS NO CAR TO DRIVE FOR SERVICES, BUT THINKS THAT SHE HAS A NEIGHBOR THAT MAY DRIVE HER DAILY FOR WOUND CARE AT THE DOCTOR IF NEEDED. PT HAS MEDICAID ONLY AND IS NOT WILLING FOR RISK CONTROL REPRESENTATIVE CARE PLACEMENT IN PRISON. CM CALLED [facility], SPOKE TO ABBIE, THEY ARE NOT ABLE TO TAKE WITH NO ENDPOINT AND NO TEACHABLE CAREGIVER. CM CALLED [facility], SPOKE TO EMILY, THEY WILL NOT ACCEPT WITHOUT TEACHABLE CAREGIVER. CM CALLED [facility], SPOKE TO JACQUELINE, THEY WILL NOT ACCEPT WITHOUT A TEACHABLE CAREGIVER. CM CALLED [facility], SPOKE TO HELENE, THEY WILL NOT ACCEPT WITHOUT A TEACHABLE CAREGIVER. CM CALLED [email or web address], , SPOKE TO ALEJANDRA, THEY WILL ACCEPT FOR DAILY WOUND CARE FOR A VERY SHORT PERIOD OF TIME AND WILL TALK TO DR. ROSA REGARDING OPTIONS OTHER THAN DAILY WOUND CARE. [email or web address] CAN ADMIT ON Monday12-22-19. CM FAXED REFERRAL TO [facility] AT [phone]. [email or web address] WILL ADMIT FOR DAILY WOUND CARE STARTING ON 12-22-19, AND WILL DO DAILY FOR A VERY SHORT PERIOD OF TIME; DUE TO PT NOT HAVING TEACHABLE CAREGIVER, [facility] WILL DISCUSS OTHER OPTIONS (OTHER THAN DAILY PACKING AND DRESSING) THAT MAY MEET PT'S NEEDS. FOR DISCHARGE, CALL [email or web address] AT [phone], FAX DISCHARGE INFORMATION TO [email or web address] AT [phone]. Israel Baugh. CASE MANAGEMENT DCP- Discharge Planning Updated by [id number]: Lindsey Queen on 12/19/19 7:[address] Patient Name: ELIZABETH HUBER Admission Status: ER Accout number: [id number] Admission Date: 12-16-2019 : 1965 Admission Diagnosis:SEPSIS, UNSPECIFIED ORGANISM Attending: BRAYAN EDUARDO Current LOS: 3 Anticipated DC Date: Planned Disposition: Home Primary Insurance: MEDICAID [place] Discharge Planning Comments: CM met with patient to complete initial dc planning assessment. CM educated patient on the CM role and verbal consent given by patient to complete assessment. CM verified patient's address, phone number, and emergency contact phone numbers. Patient stated her number has changed, and she does not recall the number. States she lives independently with her adult blind daughter without any needs. States her brother will pick her up at discharge. At discharge patient plans to return home and feels this is a safe discharge. CM discussed availability of home health, rehab services, and medical equipment. Patient denied known discharge needs at this time. CM will continue to follow and will assist as needed with dc plans/needs. Mushroom Packer: Lindsey Queen DCPIA - Discharge Planning Initial Assessment Updated by [email or web address]: Lindsey Queen on 12/19/19 8:13 am * Is the patient Alert and Oriented? Yes * How many steps to enter\exit or inside your home? 3/0 * Preadmission Environment Home with Family * ADLs Independent * Equipment None * Verbal permission to speak to the caregivers and representatives has been obtained from the patient. N/A * Community resources currently utilized None * Additional services required to return to the preadmission environment? No * Can the patient safely return to the preadmission environment? Yes * Has this patient been hospitalized within the prior 30 days at any hospital? No Coverage Notice Reviewer: [id number] Kenn Moran Notice Issued Date-Time: 12/20/2019 11:35 Notice Type: Patient Choice Letter Notice Delivered To: Patient Relationship to Patient: Self Ultrasound Technologist Name: Delivery Method: HAND - Hand Delivered Eva Days: Prior Verbal Notification: Recipient Understood Notice: Yes Recipient Signature: Yes Med Rec Note Co-signed by Attending: Coverage Notice Comment: Verbal refusal of not going to a LTC facility. Last DP export: 12/20/19 10:48 a Patient Name: ELIZABETH HUBER Page [id number] at 1201 All edits/amendments must be made on the electronic document DICTATION DATE: 12/21/19 1200 MUSHROOM PACKER: PAULY 12/21/19 1200 RPT#: [id number] DC DATE:12/20/19 STATUS: DIS IN [address] [place] [address] END OF REPORT
== END 2019-12-20 19:22 | disposition home health service (06) | DRG 854 ==
LOC: D.ER 18:59 → D.MS 20:58 → D.M2 20:58 → D.MS 12-17 08:52 → D.M2 12-17 15:01 → D.MS 12-19 15:19
PROVIDERS: Emergency Medicine; ADMIT Internal Medicine Nephrology; ATTEND Internal Medicine Nephrology
PROC: 0J990ZZ Drainage of Buttock Subcutaneous Tissue and Fascia, Open Approach (ICD-10-PCS; principal; 2019-12-16)
DX: A41.9 Sepsis, unspecified organism (principal); L02.31 Cutaneous abscess of buttock; L03.317 Cellulitis of buttock; E87.1 Hypo-osmolality and hyponatremia; F17.203 Nicotine dependence unspecified, with withdrawal; I25.10 Atherosclerotic heart disease of native coronary artery without angina pectoris; E78.5 Hyperlipidemia, unspecified; M19.90 Unspecified osteoarthritis, unspecified site; M32.9 Systemic lupus erythematosus, unspecified; Q05.9 Spina bifida, unspecified; D64.9 Anemia, unspecified; E87.6 Hypokalemia; E83.42 Hypomagnesemia; J44.9 Chronic obstructive pulmonary disease, unspecified; E03.9 Hypothyroidism, unspecified; F41.8 Other specified anxiety disorders; J20.9 Acute bronchitis, unspecified

== ENCOUNTER 2020-06-14 21:22 | Emergency (ER) | payer MEDICAID ==
[~2020-06-14] VITALS: Ht 172.7 cm; Wt 54.4 kg
[~2020-06-14 21:22] MED LIST changes: +LEVAQUIN750 MG PO
[2020-06-14 21:33] VITALS: Ht 172.7 cm; Wt 54.4 kg
[2020-06-14 22:21] LABS: BASOPHILS 0.5 % (0-2); EOSINOPHILS 8.6 % (0-7); HEMATOCRIT 35.2 % (36.0-48.0); HEMOGLOBIN 11.4 g/dL (12-16); IMMATURE GRANULOCYTES 0.2 % (0-5); LYMPHOCYTES 39.5 % (15-50); MCH 28.6 pg (26.0-34.0); MCHC 32.4 g/dL (31.0-37.0); MCV 88.2 fL (80.0-100.0); MONOCYTES 11.1 % (2-11); NEUTROPHILS 40.1 % (40-80); PLATELET COUNT 248 10x3/uL (130-400); RBC 3.99 10x6/uL (4.00-5.40); RDW 15.4 % (11.5-14.5); WBC 6.1 10x3/uL (4.8-10.8)
[2020-06-14 22:27] LABS: APTT 27.6 SECONDS (22.8-39.4); INR 0.9 (0.85-1.17); PROTIME 12.2 SECONDS (11.6-15.0)
[2020-06-14 22:29] LABS: D-DIMER-QUANTITATIVE 0.39 ug/mLFEU (0.20-0.54)
[2020-06-14 22:31] LABS: AMORPHOUS SEDIMENT >1+ LPF (NONE SEEN); BACTERIA FEW HPF (NONE SEEN); BILIRUBIN NEGATIVE (NEGATIVE); EPITHELIAL CELLS 0-5 /hpf (0-5); GRANULAR CAST 0-5 LPF (NONE SEEN); KETONE NEGATIVE (NEGATIVE); NITRITE NEGATIVE (NEGATIVE); UROBILINOGEN NORMAL mg/dL (< 2); WHITE CELLS - URINE 0-5 HPF (0-4)
[2020-06-14 22:32] LABS: UDS - AMPHET POSITIVE QUAL (NEGATIVE); UDS - BARB NEGATIVE QUAL (NEGATIVE); UDS - BENZO NEGATIVE QUAL (NEGATIVE); UDS - COCAINE NEGATIVE QUAL (NEGATIVE); UDS - OPIATE NEGATIVE QUAL (NEGATIVE); UDS - PCP NEGATIVE QUAL (NEGATIVE); UDS - THC NEGATIVE QUAL (NEGATIVE)
[2020-06-14 22:32] LABS: CALC OSMOLALITY 279 mosm/kg (275-300); CARBON DIOXIDE 31.1 mmol/L (21.0-32.0); CHLORIDE - SERUM 103 mmol/L (98-107); CREATININE - SERUM 0.9 mg/dL (0.6-1.3); GLUCOSE 95 mg/dL (74-106); POTASSIUM - SERUM 3.7 mmol/L (3.5-5.1); SODIUM 138 mmol/L (136-145); UREA NITROGEN 23 mg/dL (7-18); eGFR NON AFRICAN AMERICAN 69 mL/min (90-120)
[2020-06-14 22:50] LABS: ALBUMIN 3.6 g/dL (3.4-5.0); ALKALINE PHOSPHATASE 65 U/L (30-120); ALT (SGPT) 31 U/L (10-68); BILIRUBIN - TOTAL 0.35 mg/dL (0.2-1.3); CKMB 9.1 U/L (0.0-3.6); CREATINE KINASE 334 UL (21-215); MAGNESIUM - SERUM 1.9 mg/dL (1.8-2.4); PRO BNP 724 pg/mL (0-125); PROTEIN - SERUM 7.1 g/dL (6.4-8.2); TROPONIN-I < 0.017 ng/mL (0.000-0.060)
[2020-06-15] MEDS ORDERED: ULTRAM50 MG PO (00:07)
[2020-06-15] MEDS ORDERED: PROTONIX40 MG PO (00:07)
[2020-06-15] MEDS ORDERED: HYDROCODON-ACE1 EAC7 PO (00:14)
[2020-06-15 05:15] VITALS: BP 135/89
== END 2020-06-15 05:17 | disposition home or self-care (01) ==
LOC: D.ER 21:22
PROVIDERS: Emergency Medicine
DX: K21.9 Gastro-esophageal reflux disease without esophagitis (principal); I10 Essential (primary) hypertension; J44.9 Chronic obstructive pulmonary disease, unspecified; Z72.0 Tobacco use; R07.9 Chest pain, unspecified; F15.10 Other stimulant abuse, uncomplicated

== ENCOUNTER 2020-06-29 12:38 | Observation (INO) | payer MEDICAID ==
[~2020-06-29] VITALS: Ht 172.7 cm; Wt 68.2 kg
--- NOTE | ~2020-06-29 | CN ---
PATIENT NAME:ELIZABETH HUBER MEDICAL RECORD: [id number] : [birth year] LOCATION:D. D.2115 ADMIT DATE: 06/29/20 ACCOUNT: [id number] CONSULTING PHYSICIAN: JEAN CARLOS CRANDALL MD REFERRING PHYSICIAN: TUAN ARANA MD DATE OF CONSULTATION: 06/30/2020 HISTORY OF PRESENT ILLNESS: A 54-year-old lady with no known history of coronary artery disease. She actually has a history of admitted approximately 1 year ago with anginal symptomology, underwent angiography, was normal at that time. Has a history of obstructive pulmonary disease, hypertension as well as unfortunately continued meth use. Admitted with chest pain. Describes several different types of pain, some radiating, some nonradiating, not necessarily worse with exertion. We were asked to see her concerning her cardiovascular status. Troponins are negative. ECG is normal without acute change compared to previous. PAST MEDICAL HISTORY: Includes: 1. History of hypertension. 2. Obstructive pulmonary disease. 3. Hypothyroidism, on replacement. MEDICATIONS: Include Synthroid 50 mcg q. day, tramadol 50 mg p.o. q.4 p.r.n., Seroquel 25 at bedtime, Neurontin 300 mg t.i.d., aspirin 325 q. day, Paxil 40 q. day, Atarax 25 t.i.d. p.r.n., metoprolol 25 b.i.d., albuterol 2 puffs q.i.d. SOCIAL HISTORY: Unfortunately, she continues to do meth. Smokes about a pack a day. ALLERGIES: ERYTHROMYCIN, KETOROLAC, SULFA, MORPHINE, CODEINE. REVIEW OF SYSTEMS: The patient reports easy bruising but reports no swollen glands. The patient reports no fever, no night sweats, no significant weight gain, no significant weight loss. No significant exercise tolerance. The patient reports no dry eyes, no irritation, no vision change. Patient reports no difficulty hearing and no ear pain. Patient reports no frequent nose bleeds or nose and sinus problems. Patient reports no arm pain on exertion. No shortness of breath while lying down. No history of heart murmur. Patient reports no cough, no wheezing or coughing up blood. Patient reports no abdominal pain, no vomiting. Normal appetite. No diarrhea and not vomiting blood. No nausea and no constipation. Patient reports no incontinence. No difficulty urinating. No hematuria. No increased frequency. Patient reports no muscle aches. No weakness, no arthralgias, no back pain. No swelling of the extremities. Patient reports no abnormal mole, no jaundice, no rashes. Reports no loss of consciousness. No weakness and no numbness. No seizures, dizziness, or headaches. The patient reports no depression, no sleep disturbance, feeling safe in a relationship and no alcohol abuse. Patient reports no fatigue. Reports no runny nose or sinus pressure. No itching, no hives, and no frequent sneezing. PHYSICAL EXAMINATION: GENERAL: No acute distress, appears stated age. VITAL SIGNS: 119/74, pulse 107 and regular. HEENT: Normocephalic, atraumatic. Poor dentition. NECK: No JVD or bruit. CONSULT REPORT [id number] ELIZABETH HUBER HEART: Regular. A II/ systolic ejection murmur. LUNGS: Good air excursion. ABDOMEN: Soft, nontender. EXTREMITIES: Pulses 2+. There is no edema. INVESTIGATIONS: EKG is without change. IMPRESSION AND PLAN: Recurrent chest pain, underlying meth abuse. Troponins are negative at this point. We will check echocardiographic study for focal wall motion. If this is normal, no contraindication to discharge from my standpoint. NTS:[id number] Voice Confirmation ID: [id number] DOCUMENT ID: [id number] JEAN CARLOS CRANDALL MD CC: [id number] DICTATION DATE: 06/30/2052 MINER PLACER: 06/30/20 183 ADM IN [facility] [place] [id number] [place] [address]
[~2020-06-29 12:38] MED LIST changes: +PROTONIX40 MG PO
[2020-06-29 13:05] VITALS: BP 129/87
[2020-06-29 13:19] LABS: BASOPHILS 0.4 % (0-2); EOSINOPHILS 7.5 % (0-7); HEMATOCRIT 35.1 % (36.0-48.0); HEMOGLOBIN 11.3 g/dL (12-16); IMMATURE GRANULOCYTES 0.1 % (0-5); LYMPHOCYTES 28.8 % (15-50); MCH 28.5 pg (26.0-34.0); MCHC 32.2 g/dL (31.0-37.0); MCV 88.4 fL (80.0-100.0); MEAN PLATELET VOLUME 10.8 fL (7.4-10.4); MONOCYTES 9.9 % (2-11); NEUTROPHILS 53.3 % (40-80); PLATELET COUNT 212 10x3/uL (130-400); RBC 3.97 10x6/uL (4.00-5.40); RDW 15.5 % (11.5-14.5)
[2020-06-29 13:31] LABS: APTT 27.4 SECONDS (22.8-39.4); INR 0.91 (0.85-1.17); PROTIME 12.2 SECONDS (11.6-15.0)
[2020-06-29 13:46] LABS: CALC OSMOLALITY 283 mosm/kg (275-300); CHLORIDE - SERUM 102 mmol/L (98-107); CREATININE - SERUM 0.6 mg/dL (0.6-1.3); GLUCOSE 105 mg/dL (74-106); POTASSIUM - SERUM 3.7 mmol/L (3.5-5.1); SODIUM 140 mmol/L (136-145); UREA NITROGEN 27 mg/dL (7-18); eGFR NON AFRICAN AMERICAN > 90 mL/min (90-120)
[2020-06-29 14:01] LABS: ALBUMIN 3.7 g/dL (3.4-5.0); ALKALINE PHOSPHATASE 64 U/L (30-120); ALT (SGPT) 23 U/L (10-68); BILIRUBIN - TOTAL 0.32 mg/dL (0.2-1.3); CREATINE KINASE 575 UL (21-215); MAGNESIUM - SERUM 2.1 mg/dL (1.8-2.4); PROTEIN - SERUM 6.8 g/dL (6.4-8.2)
[2020-06-29 14:02] LABS: TROPONIN-I < 0.017 ng/mL (0.000-0.060)
[2020-06-29 15:06] VITALS: BP 124/83
[2020-06-29 17:00] VITALS: BP 124/80
--- NOTE | 2020-06-29 19:00 | NUR ---
REPORT TO JACINTA PENNINGTON.
[2020-06-29 19:47] VITALS: BP 114/81
[2020-06-29 20:00] VITALS: BP 114/96
[2020-06-29 21:56] LABS: CREATINE KINASE 481 UL (21-215)
[2020-06-29 21:57] LABS: TROPONIN-I < 0.017 ng/mL (0.000-0.060)
[2020-06-29 22:37] VITALS: BP 114/96; Ht 172.7 cm; Wt 68.2 kg
--- NOTE | 2020-06-30 00:02 | NUR ---
PATIENT WAS SITTING ON TOLIET AND PATIENT STATED "SHE FELL". PATIENT STATING THAT HER RIGHT HIP HURTS. X RAY TO THE RIGHT HIP WAS DONE IN THE ER. WILL NOTIFY
--- NOTE | 2020-06-30 00:11 | NUR ---
DR. ARANA RETURNED CALL, NO NEW ORDERS AT THIS TIME. PATIENT WAS WITNESSED KICKING THE TRASH CAN BY 2 NURSES THAT ASSISTED HER TO THE BATHROOM AND PATIENT THEN REPORTED THAT SHE ALMOST FELL AGAIN BUT PATIENT WAS SECURELY SITTING ON THE TOILET. FALL MAT PLACED ON THE FLOOR BY PATIENT'S BED. ALL FALL PRECAUTIONS IN PLACE.
--- NOTE | 2020-06-30 01:06 | NUR ---
PATIENT SCREAMING "YOU FUCKING BITCHES, I WANT MY FUCKING DOOR SHUT." CHARGE NURSE EXPLAINED TO PATIENT THAT DUE TO HER FELLING IN THE ER AND STAING THAT SHE FELL IN THE RESTROOM. WE COULD NOT HAVE THE DOOR CLOSED UNLESS SHE WANTED TO SIGN THE BED ALARM WAIVER. PATIENT AGREED. EXPLAINED TO THE PATIENT THAT WE NEEDED TO CALL HER FAMILY BECAUSE OF HER FALL. PATIENT STATED, " I WANT MY FUCKING PAIN MEDS!!!" "NO YOU CAN NOT CALL MY FUCKING DAUGHTER, SHE IS LEGALLY BLIND!!!!" "CALL MY FUCKING DR!!" PATIENT WAS INFORMED THAT DR. ARANA WAS ALREADY CALLED AND NOTIFIED OF HER FALL AND NO NEW ORDERS WERE GIVEN. PATIENT REQUESTED TO LEAVE [facility] AND DEMANDED THAT THE NURSE CALL HER AN AMBULANCE TO TAKE HER TO [facility]. PATIENT DECIDED AGAINST LEAVING. PATIENT CURRENTLY LAYING IN BED WITH WARM PACKS ON HER BACK.
[2020-06-30 04:00] VITALS: BP 96/60
[2020-06-30 04:52] LABS: CKMB 5.2 U/L (0.0-3.6); CREATINE KINASE 382 UL (21-215)
[2020-06-30 04:55] LABS: TROPONIN-I < 0.017 ng/mL (0.000-0.060)
--- NOTE | 2020-06-30 06:11 | NUR ---
PATIENT WAS NOT COVID TESTED IN THE ER. ATTEMPTED TO TEST HER WHEN SHE CAME TO THE FLOOR. PATIENT REFUSED. PATIENT REQUESTING HER PAIN MEDICATION. HER PAIN MEDICATION NOT AVAILABLE UNTIL 643. RN ATTEMPTED TO EXPLAIN THIS TO THE PATIENT SHE BEGAN SCREAMING "I CAN'T FUCKING DO THIS!!!! RN EXPLAINED TO PATIENT THAT WHEN THE MEDICATION BECAME AVAILABLE THAT I WOULD BRING IT IN. PATIENT AGAIN BEGAN SCREAMING "FUCK THIS"
[2020-06-30 08:08] VITALS: BP 119/74
[2020-06-30] MEDS ORDERED: LEVOFLOXACIN500 MG PO (08:24)
[2020-06-30 12:17] VITALS: BP 111/83
--- NOTE | 2020-06-30 12:31 | NUR ---
IV AND TELEMETRY DCD. DC PLANS GIVEN. UNDAERSTANDING VOICED. WAITING TO GET AHOLD OF SOMEONE TO PICK HER UP.
--- NOTE | 2020-06-30 13:37 | NUR ---
I CALLED DR NOBLES JOB DEVELOPMENT SPECIALIST FOR DR ARANA TO LET HIM KNOW THAT PATIENT IS DEMANDING HER IV PLACED SO SHE CAN HAVE HER IV PAIN MEDICATION OR SHE IS "NOT GOING TO BE DISCHARGED". HE STATED "NO".
--- NOTE | 2020-06-30 13:53 | NUR ---
STATES SHE IS NOT REDY FOR DC. SPOKE DR. FERNANDEZ AND HE STATES THAT SHE IS TO [place] HOME TODAY.
--- NOTE | 2020-06-30 15:34 | MORECARE ---
CASE MANAGEMENT DISCHARGE SUMMARY PATIENT: ELIZABETH HUBER UNIT: [id number] ADM DATE: 06/29/20 AGE: 54 : 63 SEX: F ROOM/BED: D.2522 AUTHOR: ABIGAIL,DOC PHYSICIAN: REFERRING PHYSICIAN: TUAN ARANA MD DATE OF SERVICE: 06/30/20 Discharge Plan Patient Name: ELIZABETH HUBER Facility: [facility]:[place] : 1965 Planned Disposition: Home Anticipated Discharge Date: Discharge Date: Expected LOS: Initial Reviewer: [email or web address] Initial Review Date: 06/29/2020 Generated: 06/30/20 4:33 pm Comments DCP- Discharge Planning Updated by [id number]: Tanisha Moran on 06/30/20 2:[address] Patient Name: ELIZABETH HUBER Admission Status: ER Accout number: [id number] Admission Date: 06-29-2020 : 1965 Admission Diagnosis: Attending: TUAN ARANA Current LOS: 1 Anticipated DC Date: Planned Disposition: Home Primary Insurance: MEDICAID [place] Discharge Planning Comments: Called to patient room per her request. States she does not feel ready to leave because she's still coughing. I have informed her that the physician is sending her home on PO antibiotic called Levaquin. I reassured her that her WBC is normal. She states she is having bleeding from her rectum and a white discharge. I again informed her of normal WBC and HCT. I informed her to f/u with her PCP to have this addressed. She states she has hemmorhoids and I encouraged use of OTC hemmorhoid treatments. She is crying and states no one can help her at home when she has stress incontinence from coughing. I encouraged her to use pads as needed. She declines need for penitentiary care, states she is independent. She declines need for psychiatric care. I offered substance abuse literature and rehabs and she states "that was years ago that I had a problem and then again 5 days ago, but I don't have a substance abuse problem." Macry, primary nurse, states her ride is coming at 6PM to pick her up. Home today. Property Insurance Inspector: Tanisha Moran Patient Name: ELIZABETH HUBER Page [phone] at 1534 All edits/amendments must be made on the electronic document DICTATION DATE: 06/30/201532 BAG MACHINE OPERATOR: PAULY 06/30/201532 RPT#: [id number] DC DATE: STATUS: ADM IN [facility] [address] [place] [address] END OF REPORT
--- NOTE | 2020-06-30 16:54 | NUR ---
STILLREFUSING TO LEAVE AFTER SPEAKING WITH MD. UPS DRIVER AND COSMETIC DENTIST. COSMETIC DENTIST SAYS SHE WILL DISCUSS IT WITH HER AGAIN.
--- NOTE | 2020-07-01 09:34 | MORECARE ---
CASE MANAGEMENT DISCHARGE SUMMARY PATIENT: ELIZABETH HUBER UNIT: [id number] ADM DATE: 06/29/20 AGE: 54 : 63 SEX: F ROOM/BED: D.7829 AUTHOR: ABIGAILDOC PHYSICIAN: REFERRING PHYSICIAN: TUAN ARANA MD DATE OF SERVICE: 07/01/20 Discharge Plan Patient Name: ELIZABETH HUBER Facility: [facility]:[place] : 1965 Planned Disposition: Home Anticipated Discharge Date: Discharge Date: 06/30/2020 Expected LOS: Initial Reviewer: [id number] Initial Review Date: 06/29/2020 Generated: 07/01/20 10:33 am Comments DCP- Discharge Planning Updated by [id number]: Tanisha Moran on 06/30/20 2:[address] Patient Name: ELIZABETH HUBER Admission Status: ER Accout number: [id number] Admission Date: 06-29-2020 : 1965 Admission Diagnosis: Attending: TUAN ARANA Current LOS: 1 Anticipated DC Date: Planned Disposition: Home Primary Insurance: MEDICAID [place] Discharge Planning Comments: Called to patient room per her request. States she does not feel ready to leave because she's still coughing. I have informed her that the physician is sending her home on PO antibiotic called Levaquin. I reassured her that her WBC is normal. She states she is having bleeding from her rectum and a white discharge. I again informed her of normal WBC and HCT. I informed her to f/u with her PCP to have this addressed. She states she has hemmorhoids and I encouraged use of OTC hemmorhoid treatments. She is crying and states no one can help her at home when she has stress incontinence from coughing. I encouraged her to use pads as needed. She declines need for alf care, states she is independent. She declines need for psychiatric care. I offered substance abuse literature and rehabs and she states "that was years ago that I had a problem and then again 5 days ago, but I don't have a substance abuse problem." Marcy, primary nurse, states her ride is coming at 6PM to pick her up. Home today. Director Of National Sales: Tanisha Orrell Last DP export: 10/20/20 2:34 Patient Name: ELIZABETH HUBER Page [phone] at 0934 All edits/amendments must be made on the electronic document DICTATION DATE: 07/01/20933 WOOD GRINDER OPERATOR: PAULY 07/01/20933 RPT#: [id number] DC DATE:06/30/20 STATUS: DIS IN [facility] [address] [place] [address] END OF REPORT
== END 2020-06-30 18:56 | disposition home or self-care (01) ==
LOC: D.ER 12:38 → D.M2 15:34 → D.EDHOLD 15:34 → D.M2 16:33 → OBSVTIME 21:15 → D.M2 06-30 18:56
PROVIDERS: Emergency Medicine; ADMIT Family Medicine; ATTEND Family Medicine
DX: F15.10 Other stimulant abuse, uncomplicated (principal); R07.9 Chest pain, unspecified; F43.23 Adjustment disorder with mixed anxiety and depressed mood; J20.9 Acute bronchitis, unspecified; I10 Essential (primary) hypertension; J44.9 Chronic obstructive pulmonary disease, unspecified; Z72.0 Tobacco use; E03.9 Hypothyroidism, unspecified

== ENCOUNTER 2020-11-18 19:04 | Inpatient (IN) | payer MEDICAID ==
[~2020-11-18] VITALS: Ht 172.7 cm; Wt 74.4 kg
--- NOTE | 2020-11-18 19:43 | NUR ---
URINE SENT TO LAB AT THIS TIME.
[2020-11-18 19:56] LABS: BASOPHILS 0.6 % (0-2); EOSINOPHILS 9.2 % (0-7); HEMOGLOBIN 10.1 g/dL (12-16); IMMATURE GRANULOCYTES 0.4 % (0-5); LYMPHOCYTES 26.4 % (15-50); MCH 28.5 pg (26.0-34.0); MCHC 32.6 g/dL (31.0-37.0); MCV 87.6 fL (80.0-100.0); MEAN PLATELET VOLUME 10.6 fL (7.4-10.4); MONOCYTES 11.6 % (2-11); NEUTROPHIL ABS# 4.12 10x3/uL (1.56-6.13); NEUTROPHILS 51.8 % (40-80); RBC 3.54 10x6/uL (4.00-5.40); RDW 17.7 % (11.5-14.5)
[2020-11-18 19:56] LABS: BILIRUBIN NEGATIVE (NEGATIVE); KETONE NEGATIVE (NEGATIVE); NITRITE NEGATIVE (NEGATIVE); UROBILINOGEN NORMAL mg/dL (< 2)
[2020-11-18 19:57] LABS: PLATELET COUNT 309 10x3/uL (130-400)
[2020-11-18 20:02] LABS: UDS - AMPHET POSITIVE QUAL (NEGATIVE); UDS - BARB NEGATIVE QUAL (NEGATIVE); UDS - BENZO NEGATIVE QUAL (NEGATIVE); UDS - COCAINE NEGATIVE QUAL (NEGATIVE); UDS - OPIATE NEGATIVE QUAL (NEGATIVE); UDS - PCP NEGATIVE QUAL (NEGATIVE); UDS - THC POSITIVE QUAL (NEGATIVE)
[2020-11-18 20:04] LABS: APTT 26.3 SECONDS (22.8-39.4); INR 0.97 (0.85-1.17); PROTIME 11.9 SECONDS (11.6-15.0)
[2020-11-18 20:05] LABS: CALC OSMOLALITY 268 mosm/kg (275-300); CALCIUM 8.2 mg/dL (8.5-10.1); CARBON DIOXIDE 27.8 mmol/L (21.0-32.0); CHLORIDE - SERUM 98 mmol/L (98-107); CREATININE - SERUM 0.7 mg/dL (0.6-1.3); GLUCOSE 117 mg/dL (74-106); POTASSIUM - SERUM 3.8 mmol/L (3.5-5.1); SODIUM 131 mmol/L (136-145); UREA NITROGEN 27 mg/dL (7-18); eGFR NON AFRICAN AMERICAN > 90 mL/min (90-120)
[2020-11-18 20:21] LABS: ALKALINE PHOSPHATASE 173 U/L (30-120); ALT (SGPT) 128 U/L (10-68); BILIRUBIN - TOTAL 1.22 mg/dL (0.2-1.3); CKMB 4.5 U/L (0.0-3.6); CREATINE KINASE 235 UL (21-215); LIPASE 158 U/L (73-393); MAGNESIUM - SERUM 2.2 mg/dL (1.8-2.4); PROTEIN - SERUM 7.4 g/dL (6.4-8.2); TROPONIN-I < 0.017 ng/mL (0.000-0.060)
[2020-11-18 21:00] VITALS: BP 109/76
--- NOTE | 2020-11-18 23:30 | NUR ---
RECIEVED TO ROOM 2115 FROM ER VIA . PT A&O. VITALS STABLE. IV TO RIGHT HAND SL. PT SITTING UIP ON SIDE OF BED AND IS VERY TWITCHY, CONSTANTLY KICKING FEET AND WAVING ARMS AROUND. HISTORY AND MED REC COMPLETE. PT STATED THAT SHE IS A PACK A DAY SMOKER AND ANSWERED NO TO REC. DRUGS, PT ALSO STATED THAT SHE HASNT DONE METH FOR 5 WEEKS. PT ASKING FOR FOOD AND DRINKS, CRACKERS, PUDDING, PEANUT BUTTER AND SODA TAKEN TO ROOM.
[2020-11-18] MEDS ORDERED: IBUPROFEN800 MG PO (23:31)
[2020-11-19 00:23] VITALS: BP 100/67; BMI 24.9
--- NOTE | 2020-11-19 01:23 | NUR ---
PT IN BED RESTING, NO S/S DISTRESS NOTED.
[2020-11-19 04:00] VITALS: BP 120/66
--- NOTE | 2020-11-19 04:12 | NUR ---
PT LAYING IN BED KICKING LEGS ON THE FOOT OF THE BED, PT ALSO TANGLED UP IN PHONE CORD AND IV TUBING. PT ASKING FOR ATIVAN AND PAIN MEDICATION, INFORMED PT THAT IT IS A LITTLE TOO EARLY FOR EITHER MEDICATION. PT STATED UNDERSTANDING. PT ALSO ASKING FOR MORE SNACKS.
--- NOTE | 2020-11-19 04:41 | NUR ---
ATIVAN 2 MG GIVEN FOR SHAKING AND AGITATION, PUDDING AND MILK GIVEN AT PT REQUEST, PT ASKING FOR ULTARM AND SEROQUEL, INFORMED PT THAT ULTRAM IS ORDERED EVERY 6 HOURS AND ITS TOO EARLY TO GIVE IT AND SEROQUEL WILL BE GIVEN WITH 0900 MEDICATIONS.
[2020-11-19 06:12] LABS: BASOPHILS 0.7 % (0-2); EOSINOPHILS 11.4 % (0-7); HEMOGLOBIN 9.9 g/dL (12-16); IMMATURE GRANULOCYTES 0.2 % (0-5); LYMPHOCYTES 31.6 % (15-50); MCH 28.1 pg (26.0-34.0); MCHC 31.9 g/dL (31.0-37.0); MCV 88.1 fL (80.0-100.0); MEAN PLATELET VOLUME 10.6 fL (7.4-10.4); NEUTROPHIL ABS# 2.68 10x3/uL (1.56-6.13); NEUTROPHILS 47.1 % (40-80); PLATELET COUNT 308 10x3/uL (130-400); RBC 3.52 10x6/uL (4.00-5.40); RDW 18.4 % (11.5-14.5); RETIC 3.67 % (0.45-2.28)
[2020-11-19 06:13] LABS: WBC 5.7 10x3/uL (4.8-10.8)
[2020-11-19 06:33] LABS: % SATURATION 38 % (15-55); IRON 137 ug/dl (35-150); TOTAL IRON BIND CAPACITY 354 ug/dl (260-445); UNSAT IRON BIND CAPACITY 217 ug/dl (150-375)
[2020-11-19 07:02] LABS: ALBUMIN 2.7 g/dL (3.4-5.0); ALKALINE PHOSPHATASE 157 U/L (30-120); ALT (SGPT) 113 U/L (10-68); BILIRUBIN - TOTAL 1.17 mg/dL (0.2-1.3); CALCIUM 7.7 mg/dL (8.5-10.1); CARBON DIOXIDE 25.8 mmol/L (21.0-32.0); CHLORIDE - SERUM 99 mmol/L (98-107); CKMB 2.7 U/L (0.0-3.6); CREATINE KINASE 133 UL (21-215); CREATININE - SERUM 0.6 mg/dL (0.6-1.3); FERRITIN 129 ng/mL (3-244); GLUCOSE 124 mg/dL (74-106); MAGNESIUM - SERUM 2.1 mg/dL (1.8-2.4); POTASSIUM - SERUM 3.3 mmol/L (3.5-5.1); PROTEIN - SERUM 6.9 g/dL (6.4-8.2); SODIUM 132 mmol/L (136-145); THYROID STIMULATING HORMONE 5.24 uIU/mL (0.36-3.74); TROPONIN-I < 0.017 ng/mL (0.000-0.060); eGFR NON AFRICAN AMERICAN > 90 mL/min (90-120)
[2020-11-19 07:05] LABS: CALC OSMOLALITY 267 mosm/kg (275-300); UREA NITROGEN 18 mg/dL (7-18)
[2020-11-19 08:32] VITALS: BP 110/68
[2020-11-19 10:48] VITALS: Ht 172.7 cm; Wt 74.4 kg
[2020-11-19 11:00] VITALS: BP 112/55
--- NOTE | 2020-11-19 12:14 | NUR ---
PT SLEEPING AT PRESENT. PREVIOUSLY TOOK A SHOWER.
[2020-11-19 20:46] VITALS: BP 100/60
--- NOTE | 2020-11-19 22:00 | NUR ---
PT AAOX4, RESTLESS AND C/O PAIN 10/10 EVERY[address]. PT GIVEN PRN MEDS. SHEETS ON BED WERE WET FROM LEAKING IV IN LEFT WRIST. REPLACED SHEETS, NEW IV PLACED IN RIGHT FOREARM. PT REQUESTED A SANDWICH, CHOCOLATE PUDDING, AND SODAS. NO FURTHER NEEDS AT THIS TIME.
[2020-11-20 04:20] VITALS: BP 105/73
[2020-11-20 05:42] LABS: BASOPHILS 0.5 % (0-2); EOSINOPHILS 9.7 % (0-7); HEMATOCRIT 31.6 % (36.0-48.0); IMMATURE GRANULOCYTES 0.5 % (0-5); LYMPHOCYTE ABS# 1.73 10x3/uL (1.18-3.74); LYMPHOCYTES 39.1 % (15-50); MCH 28.6 pg (26.0-34.0); MCHC 31.6 g/dL (31.0-37.0); MEAN PLATELET VOLUME 10.4 fL (7.4-10.4); MONOCYTES 9.3 % (2-11); NEUTROPHIL ABS# 1.81 10x3/uL (1.56-6.13); NEUTROPHILS 40.9 % (40-80); PLATELET COUNT 268 10x3/uL (130-400); RDW 18.9 % (11.5-14.5); WBC 4.4 10x3/uL (4.8-10.8)
[2020-11-20 06:03] LABS: MCV 90.3 fL (80.0-100.0)
[2020-11-20 06:06] LABS: ALBUMIN 2.4 g/dL (3.4-5.0); ALKALINE PHOSPHATASE 132 U/L (30-120); ALT (SGPT) 90 U/L (10-68); BILIRUBIN - TOTAL 0.89 mg/dL (0.2-1.3); CALC OSMOLALITY 278 mosm/kg (275-300); CALCIUM 7.7 mg/dL (8.5-10.1); CARBON DIOXIDE 26.5 mmol/L (21.0-32.0); CHLORIDE - SERUM 104 mmol/L (98-107); CREATININE - SERUM 0.6 mg/dL (0.6-1.3); GLUCOSE 115 mg/dL (74-106); MAGNESIUM - SERUM 2.1 mg/dL (1.8-2.4); PROTEIN - SERUM 6.4 g/dL (6.4-8.2); SODIUM 138 mmol/L (136-145); UREA NITROGEN 17 mg/dL (7-18); eGFR NON AFRICAN AMERICAN > 90 mL/min (90-120)
[2020-11-20 06:07] LABS: POTASSIUM - SERUM 3.8 mmol/L (3.5-5.1)
[2020-11-20 08:23] VITALS: BP 124/65
[2020-11-20] MEDS ORDERED: NICODERM CQ1 EAC3 TOPICAL (09:41)
--- NOTE | 2020-11-20 10:16 | MORECARE ---
CASE MANAGEMENT DISCHARGE SUMMARY PATIENT: ELIZABETH HUBER UNIT: [id number] ADM DATE: 11/18/20 AGE: 55 : 63 SEX: F ROOM/BED: D.[facility] AUTHOR: SHRUTHI HAYES PHYSICIAN: REFERRING PHYSICIAN: ANNI CORTES DO DATE OF SERVICE: 11/20/20 Discharge Plan Patient Name: ELIZABETH HUBER [facility] [facility] 1965 Planned Disposition: Home Anticipated Discharge Date: Discharge Date: Expected LOS: Initial Reviewer: [email or web address] Initial Review Date: 11/20/2020 Generated: 11/20/20 11:15 am DCPIA - Discharge Planning Initial Assessment Updated by [id number]: Tanisha Moran on 11/20/20 10:14 am * Is the patient Alert and Oriented? Yes * PCP Dr. Dukes" (does not know last name or address of clinic) * [facility] * Preadmission Environment Home with Family * ADLs Independent * Equipment None * List name and contact numbers for known caregivers / representatives who currently or will assist patient after discharge: Danielle Encinas [facility] - [phone] * Verbal permission to speak to the caregivers and representatives has been obtained from the patient. Yes * Community resources currently utilized None * Additional services required to return to the preadmission environment? No * Can the patient safely return to the preadmission environment? Yes * Has this patient been hospitalized within the prior 30 days at any hospital? No Patient Name: ELIZABETH HUBER Page 14042 at 1016 All edits/amendments must be made on the electronic document DICTATION DATE: 11/20/20 1016 TELECOMMUNICATOR: PAULY 11/20/20 1016 RPT#: [id number] LA DATE: STATUS: ADM IN [facility] [address] [place] [address] END OF REPORT
--- NOTE | 2020-11-20 10:23 | MORECARE ---
CASE MANAGEMENT DISCHARGE SUMMARY PATIENT: ELIZABETH HUBER UNIT: [id number] ADM DATE: 11/18/20 AGE: 55 : 63 SEX: F ROOM/BED: D.3413 AUTHOR: ABIGAILDOC PHYSICIAN: REFERRING PHYSICIAN: ANNI CORTES DO DATE OF SERVICE: 11/20/20 Discharge Plan Patient Name: ELIZABETH HUBER Facility: [facility]:[place] : 1965 Planned Disposition: Home Anticipated Discharge Date: Discharge Date: Expected LOS: Initial Reviewer: [email or web address] Initial Review Date: 11/20/2020 Generated: 11/20/20 11:22 am Comments DCP- Discharge Planning Updated by [id number]: Tanisha Moran on 11/20/20 9:[address] Patient Name: ELIZABETH HUBER Admission Status: ER Accout number: [id number] Admission Date: 11-18-2020 : 1965 Admission Diagnosis: Attending: ANNI CORTES Current LOS: 2 Anticipated DC Date: Planned Disposition: Home Primary Insurance: MEDICAID [place] Discharge Planning Comments: CM met with patient to complete initial dc planning assessment. CM educated patient on the CM role and verbal consent given by patient to complete assessment. CM verified patient's address, phone number, and emergency contact phone numbers. Patient lives at home with her daughter. At discharge patient plans to return and feels this is a safe discharge. CM discussed availability of home health, rehab services, and medical equipment. Patient denied known discharge needs at this time. States she does not drive, but has "someone that brings her to her appointments and will take her home". No needs identified. No new Rx ordered. CM will continue to follow and will assist as needed with dc plans/needs. Yarn Dry Room Worker: Tanisha oMran DCPIA - Discharge Planning Initial Assessment Updated by [email or web address]: Tanisha Moran on 11/20/20 10:14 am * Is the patient Alert and Oriented? Yes * PCP Dr. Dukes" (does not know last name or address of clinic) * [facility] [place] * Preadmission Environment Home with Family * ADLs Independent * Equipment None * List name and contact numbers for known caregivers / representatives who currently or will assist patient after discharge: Danielle Encinas - DTR - [phone] * Verbal permission to speak to the caregivers and representatives has been obtained from the patient. Yes * Community resources currently utilized None * Additional services required to return to the preadmission environment? No * Can the patient safely return to the preadmission environment? Yes * Has this patient been hospitalized within the prior 30 days at any hospital? No Last DP export: 11/20/20 9:16 a Patient Name: ELIZABETH HUBER Page [phone] at 1023 All edits/amendments must be made on the electronic document DICTATION DATE: 11/20/20 1023 INSULATION APPLICATOR: PAULY 11/20/20 1023 RPT#: [id number] DC DATE: STATUS: ADM IN [facility] [address] [place] [address] END OF REPORT
[2020-11-20 11:11] LABS: HEPATITIS C ANTIBODY >11.0 S/CO RAT (0.0-0.9)
[2020-11-20 11:51] VITALS: BP 95/61
--- NOTE | 2020-11-20 14:30 | NUR ---
TALKED WITH PT AGAIN FOR THIRD TIME REGARDING FINDING TRANSPORTATION HOME SINCE DISCHARGED. SHE DOES NOT APPEAR TO BE IN A HURRY TO LEAVE. WILL INFORM CM OF SITUATION IN CASE PT NEEDS HELP WITH RIDE.
--- NOTE | 2020-11-20 15:07 | MORECARE ---
CASE MANAGEMENT DISCHARGE SUMMARY PATIENT: ELIZABETH HUBER UNIT: [id number] ADM DATE: 11/18/20 AGE: 55 : 63 SEX: F ROOM/BED: D.3583 AUTHOR: ABIGAILDOC PHYSICIAN: REFERRING PHYSICIAN: ANNI CORTES DO DATE OF SERVICE: 11/20/20 Discharge Plan Patient Name: ELIZABETH HUBER Facility: [facility]:[place] : 1965 Planned Disposition: Home Anticipated Discharge Date: Discharge Date: Expected LOS: Initial Reviewer: [email or web address] Initial Review Date: 11/20/2020 Generated: 11/20/20 4:07 pm Comments DCP- Discharge Planning Updated by [email or web address]: Tanisha Moran on 11/20/20 1:[address] Patient states she has a ride (her brother) picking her up at 9. I asked her if I could call him to verify and she says yes. I called [phone] and Reached [facility] and they gave me her "Jorge Ortez'trinh" number [phone] I called this number and he states he is an ex family member, but will come and get her and take her home at 7:17 tonight and will be at the ED entrance. I informed her nurse, Casper, and also informed the patient. She states "that's my step brother." Home today. DCP- Discharge Planning Updated by [email or web address]: Tanisha Moran on 11/20/20 9:[address] Patient Name: ELIZABETH HUBER Admission Status: ER Accout number: [id number] Admission Date: 11-18-2020 : 1965 Admission Diagnosis: Attending: ANNI CORTES Current LOS: 2 Anticipated DC Date: Planned Disposition: Home Primary Insurance: MEDICAID [place] Discharge Planning Comments: CM met with patient to complete initial dc planning assessment. CM educated patient on the CM role and verbal consent given by patient to complete assessment. CM verified patient's address, phone number, and emergency contact phone numbers. Patient lives at home with her daughter. At discharge patient plans to return and feels this is a safe discharge. CM discussed availability of home health, rehab services, and medical equipment. Patient denied known discharge needs at this time. States she does not drive, but has "someone that brings her to her appointments and will take her home". No needs identified. No new Rx ordered. CM will continue to follow and will assist as needed with dc plans/needs. Clinical Professor: Tanisha Moran DCPIA - Discharge Planning Initial Assessment Updated by [email or web address]: Tanisha Malcolmmary kate on 11/20/20 10:14 am * Is the patient Alert and Oriented? Yes * PCP Dr. Dukes" (does not know last name or address of clinic) * [facility] * Preadmission Environment Home with Family * ADLs Independent * Equipment None * List name and contact numbers for known caregivers / representatives who currently or will assist patient after discharge: Danielle Huang [facility] - [phone] * Verbal permission to speak to the caregivers and representatives has been obtained from the patient. Yes * Community resources currently utilized None * Additional services required to return to the preadmission environment? No * Can the patient safely return to the preadmission environment? Yes * Has this patient been hospitalized within the prior 30 days at any hospital? No Last DP export: 11/20/20 9:23 a Patient Name: ELIZABETH HUBER Page [phone] at 1507 All edits/amendments must be made on the electronic document DICTATION DATE: 11/20/20 1507 HOSPITALITY ASSOCIATE: PAULY 11/20/20 1507 RPT#: [id number] DC DATE: STATUS: ADM IN [facility] [address] [place] [address] END OF REPORT
--- NOTE | 2020-11-20 21:00 | NUR ---
PT DISCHARGED, AAOX4. ALL BELONGINGS TAKEN HOME. PAPERWORK DISCUSSED AND EDUCATION DONE AT BEDSIDE. PATIENT HAD NO QUESTIONS AND VERBALIZED UNDERSTANDING.
--- NOTE | 2020-11-23 08:27 | MORECARE ---
CASE MANAGEMENT DISCHARGE SUMMARY PATIENT: ELIZABETH HUBER UNIT: [id number] ADM DATE: 11/18/20 AGE: 55 : 63 SEX: F ROOM/BED: D.7866 AUTHOR: SHRUTHI HAYES PHYSICIAN: REFERRING PHYSICIAN: ANNI CORTES DO DATE OF SERVICE: 11/23/20 Discharge Plan Patient Name: ELIZABETH HUBER Facility: [facility]:[place] : 1965 Planned Disposition: Home Anticipated Discharge Date: Discharge Date: 11/20/2020 Expected LOS: Initial Reviewer: [email or web address] Initial Review Date: 11/20/2020 Generated: 11/23/20 9:26 am Comments DCP- Discharge Planning Updated by [email or web address]: Tanisha Moran on 11/20/20 12:[address] Patient states she has a ride (her brother) picking her up at 9. I asked her if I could call him to verify and she says yes. I called [phone] and Reached [facility] and they gave me her "Jorge Ortez'trinh" number [phone] I called this number and he states he is an ex family member, but will come and get her and take her home at 7:17 tonight and will be at the ED entrance. I informed her nurse, Casper, and also informed the patient. She states "that's my step brother." Home today. DCP- Discharge Planning Updated by [email or web address]: Tanisha Moran on 11/20/20 8:[address] Patient Name: ELIZABETH HUBER Admission Status: ER Accout number: [id number] Admission Date: 11-18-2020 : 1965 Admission Diagnosis: Attending: ANNI CORTES Current LOS: 2 Anticipated DC Date: Planned Disposition: Home Primary Insurance: MEDICAID [place] Discharge Planning Comments: CM met with patient to complete initial dc planning assessment. CM educated patient on the CM role and verbal consent given by patient to complete assessment. CM verified patient's address, phone number, and emergency contact phone numbers. Patient lives at home with her daughter. At discharge patient plans to return and feels this is a safe discharge. CM discussed availability of home health, rehab services, and medical equipment. Patient denied known discharge needs at this time. States she does not drive, but has "someone that brings her to her appointments and will take her home". No needs identified. No new Rx ordered. CM will continue to follow and will assist as needed with dc plans/needs. Cigarette Tipper: Tanisha Moran DCPIA - Discharge Planning Initial Assessment Updated by [email or web address]: Tanisha Dean on 11/20/20 10:14 am * Is the patient Alert and Oriented? Yes * PCP Dr. Dukes" (does not know last name or address of clinic) * [facility] * Preadmission Environment Home with Family * ADLs Independent * Equipment None * List name and contact numbers for known caregivers / representatives who currently or will assist patient after discharge: Danielle Huang - R - [phone] * Verbal permission to speak to the caregivers and representatives has been obtained from the patient. Yes * Community resources currently utilized None * Additional services required to return to the preadmission environment? No * Can the patient safely return to the preadmission environment? Yes * Has this patient been hospitalized within the prior 30 days at any hospital? No Last DP export: 11/20/20 1:07 p Patient Name: ELIZABETH HUBER Page [phone] at 0827 All edits/amendments must be made on the electronic document DICTATION DATE: 11/23/20825 OPEN HEARTH HELPER: PAULY 11/23/20825 RPT#: [id number] DC DATE:11/20/20 STATUS: DIS IN [facility] [address] [place] [address] END OF REPORT
== END 2020-11-20 20:19 | disposition home or self-care (01) | DRG 311 ==
LOC: D.ER 19:04 → D.M2 22:03 → OBSVTIME 22:03 → D.M2 22:54 → D.ER 22:54 → D.M2 11-19 15:44
PROVIDERS: Family Medicine; Family Medicine Adult Medicine; ADMIT Family Medicine; ATTEND Family Medicine
DX: I20.0 Unstable angina (principal); E87.1 Hypo-osmolality and hyponatremia; F17.203 Nicotine dependence unspecified, with withdrawal; F15.10 Other stimulant abuse, uncomplicated; F12.90 Cannabis use, unspecified, uncomplicated; F41.8 Other specified anxiety disorders; D64.9 Anemia, unspecified; W19.XXXA Unspecified fall, initial encounter; I10 Essential (primary) hypertension; M32.9 Systemic lupus erythematosus, unspecified; M19.90 Unspecified osteoarthritis, unspecified site; M81.0 Age-related osteoporosis without current pathological fracture; E03.9 Hypothyroidism, unspecified

== ENCOUNTER 2020-12-11 15:55 | Emergency (ER) | payer MEDICAID ==
[~2020-12-11] VITALS: Ht 172.7 cm; Wt 63.6 kg
[~2020-12-11 15:55] MED LIST changes: +IBUPROFEN800 MG PO; +NICODERM CQ1 EAC3 TOPICAL
[2020-12-11 16:05] VITALS: Ht 172.7 cm; Wt 63.6 kg
[2020-12-11 18:01] LABS: BASOPHILS 0.5 % (0-2); EOSINOPHILS 12.4 % (0-7); HEMATOCRIT 35.6 % (36.0-48.0); HEMOGLOBIN 11.4 g/dL (12-16); LYMPHOCYTE ABS# 1.48 10x3/uL (1.18-3.74); LYMPHOCYTES 36.1 % (15-50); MCH 29.3 pg (26.0-34.0); MCV 91.5 fL (80.0-100.0); MEAN PLATELET VOLUME 11.5 fL (7.4-10.4); MONOCYTES 10.7 % (2-11); NEUTROPHIL ABS# 1.65 10x3/uL (1.56-6.13); NEUTROPHILS 40.3 % (40-80); RBC 3.89 10x6/uL (4.00-5.40); RDW 16.5 % (11.5-14.5); WBC 4.1 10x3/uL (4.8-10.8)
[2020-12-11 18:03] LABS: BILIRUBIN NEGATIVE (NEGATIVE); KETONE NEGATIVE (NEGATIVE); NITRITE NEGATIVE (NEGATIVE); PLATELET COUNT 198 10x3/uL (130-400); UROBILINOGEN NORMAL mg/dL (< 2)
[2020-12-11 18:16] LABS: UDS - AMPHET POSITIVE QUAL (NEGATIVE); UDS - BARB NEGATIVE QUAL (NEGATIVE); UDS - BENZO NEGATIVE QUAL (NEGATIVE); UDS - COCAINE NEGATIVE QUAL (NEGATIVE); UDS - OPIATE NEGATIVE QUAL (NEGATIVE); UDS - PCP NEGATIVE QUAL (NEGATIVE); UDS - THC POSITIVE QUAL (NEGATIVE)
[2020-12-11 18:18] LABS: CALC OSMOLALITY 275 mosm/kg (275-300); CALCIUM 8.5 mg/dL (8.5-10.1); CARBON DIOXIDE 30.2 mmol/L (21.0-32.0); CHLORIDE - SERUM 100 mmol/L (98-107); CREATININE - SERUM 0.6 mg/dL (0.6-1.3); GLUCOSE 78 mg/dL (74-106); POTASSIUM - SERUM 3.5 mmol/L (3.5-5.1); SODIUM 137 mmol/L (136-145); UREA NITROGEN 21 mg/dL (7-18); eGFR NON AFRICAN AMERICAN > 90 mL/min (90-120)
[2020-12-11 18:25] LABS: ALBUMIN 3.4 g/dL (3.4-5.0); ALKALINE PHOSPHATASE 106 U/L (30-120); ALT (SGPT) 153 U/L (10-68); BILIRUBIN - TOTAL 0.59 mg/dL (0.2-1.3); PROTEIN - SERUM 7.5 g/dL (6.4-8.2)
[2020-12-12 00:25] VITALS: BP 137/87
== END 2020-12-11 21:55 | disposition home or self-care (01) ==
LOC: D.ER 15:55
PROVIDERS: Emergency Medicine
DX: F15.10 Other stimulant abuse, uncomplicated (principal); E86.0 Dehydration; D53.9 Nutritional anemia, unspecified; Z86.73 Personal history of transient ischemic attack (TIA), and cerebral infarction without residual deficits; G62.9 Polyneuropathy, unspecified; I10 Essential (primary) hypertension; J44.9 Chronic obstructive pulmonary disease, unspecified; Z72.0 Tobacco use

== ENCOUNTER 2020-12-25 00:32 | Observation (INO) | payer MEDICAID ==
[~2020-12-25] VITALS: Ht 172.7 cm; Wt 75.0 kg
[2020-12-25 00:42] VITALS: Ht 172.7 cm; Wt 75.0 kg
[2020-12-25 01:28] LABS: BASOPHILS 0.3 % (0-2); EOSINOPHILS 6.9 % (0-7); HEMATOCRIT 31.9 % (36.0-48.0); HEMOGLOBIN 10.1 g/dL (12-16); IMMATURE GRANULOCYTES 0.1 % (0-5); LYMPHOCYTE ABS# 1.68 10x3/uL (1.18-3.74); LYMPHOCYTES 22.9 % (15-50); MCH 28.9 pg (26.0-34.0); MCHC 31.7 g/dL (31.0-37.0); MCV 91.4 fL (80.0-100.0); MEAN PLATELET VOLUME 9.9 fL (7.4-10.4); MONOCYTES 8.7 % (2-11); NEUTROPHIL ABS# 4.49 10x3/uL (1.56-6.13); NEUTROPHILS 61.1 % (40-80); PLATELET COUNT 218 10x3/uL (130-400); RBC 3.49 10x6/uL (4.00-5.40); WBC 7.4 10x3/uL (4.8-10.8)
[2020-12-25 01:35] LABS: CALC OSMOLALITY 272 mosm/kg (275-300); CALCIUM 8.1 mg/dL (8.5-10.1); CARBON DIOXIDE 32.1 mmol/L (21.0-32.0); CHLORIDE - SERUM 102 mmol/L (98-107); CREATININE - SERUM 0.4 mg/dL (0.6-1.3); GLUCOSE 114 mg/dL (74-106); POTASSIUM - SERUM 3.9 mmol/L (3.5-5.1); SODIUM 135 mmol/L (136-145); UREA NITROGEN 17 mg/dL (7-18); eGFR NON AFRICAN AMERICAN > 90 mL/min (90-120)
[2020-12-25 01:50] LABS: ALBUMIN 3.1 g/dL (3.4-5.0); ALKALINE PHOSPHATASE 100 U/L (30-120); ALT (SGPT) 113 U/L (10-68); BILIRUBIN - TOTAL 0.25 mg/dL (0.2-1.3); CKMB 3.8 U/L (0.0-3.6); CREATINE KINASE 129 UL (21-215); LIPASE 73 U/L (73-393); PROTEIN - SERUM 6.9 g/dL (6.4-8.2); TROPONIN-I < 0.017 ng/mL (0.000-0.060)
[2020-12-25 02:00] VITALS: BP 125/86
[2020-12-25 03:58] VITALS: BP 122/68
[2020-12-25 09:52] VITALS: BP 116/78
== END 2020-12-25 13:50 | disposition home or self-care (01) ==
LOC: D.ER 00:32 → D.EDHOLD 04:41 → OBSVTIME 04:42 → D.EDHOLD 13:50
PROVIDERS: Family Medicine; ADMIT Family Medicine; ATTEND Family Medicine
DX: R07.9 Chest pain, unspecified (principal); R53.1 Weakness; J44.9 Chronic obstructive pulmonary disease, unspecified; E03.9 Hypothyroidism, unspecified; M32.9 Systemic lupus erythematosus, unspecified; I10 Essential (primary) hypertension; G62.9 Polyneuropathy, unspecified; F19.10 Other psychoactive substance abuse, uncomplicated